=== PATIENT | male | born 1950 | race Caucasian/White ===

== ENCOUNTER 2023-12-11 11:32 | Outpatient (OUT) | payer SELFPAY | END 2023-12-11 11:33 | disposition home or self-care (01) | LOC: PST 11:32 | PROVIDERS: Visit Provider Surgery | DX: Z01.818 Encounter for other preprocedural examination (principal); R22.2 Localized swelling, mass and lump, trunk ==

== ENCOUNTER 2023-12-18 10:21 | Day surgery (SDC) | payer MEDICARE, SELFPAY ==
--- NOTE | 2023-12-18 | OP_ITS ---
OPERATION DATE: 12/18/2023 PREOPERATIVE DIAGNOSIS: Epidermal cyst of upper abdominal wall. POSTOPERATIVE DIAGNOSIS: Epidermal cyst of upper abdominal wall. PROCEDURE: Excisional biopsy 2.5 cm epidermal cyst upper abdominal wall. SURGEON: Sin Shin M.D. ANESTHESIA: Local with 0.5% Marcaine plain. ESTIMATED BLOOD LOSS: Less than 3 mL. 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 Indications, risks, benefits alternatives of proceeding with excisional biopsy under local anesthesia were explained extensively to the patient, including risks of bleeding, infection, scarring, pain, recurrence, need for further surgery. All of his questions were answered. Informed consent was obtained. PROCEDURE: Patient brought to the operating room, placed in the supine position. Area was prepped and draped in the usual sterile fashion. It was anesthetized with 0.5% Marcaine plain. The area was excised in elliptical fashion, down to subcutaneous fat. There was noted to be a large, 2.5 cm epidermal cyst. It was sent off to Pathology. The wound was irrigated. The subcutaneous tissue was re-approximated with interrupted 3-0 Monocryl suture. Skin was then closed with a running 4-0 subcuticular Monocryl suture and skin glue. Sterile pressure dressing was applied. Sponge and needle counts were correct x2 per nursing personnel. Patient tolerated procedure well, was sent to recovery room in good condition, then discharged to home. CC: Patient?s family physician. ANTHONY
--- OUTSIDE RECORDS SUMMARY | 2023-12-18 10:42 | XMS_ITS | CCD ---
Author Organization [facility] Care Team Providers Care Revenue Audit Clerk Name Role Phone YAMILKA MATOS Admitting Unavailable YAMILKA MATOS Attending Unavailable YAMILKA MATOS Primary Care Unavailable SAURABH HARDY Consulting Unavailable YAMILKA MATOS Consulting Unavailable SYD, NAM H Admitting Unavailable SYD, NAM H Attending Unavailable YAMILKA MATOS Primary Care Unavailable HAYLIE BLANCO V Consulting Unavailable SYD, NAM H Consulting Unavailable SYD, NAM H Admitting Unavailable SYD, NAM H Attending Unavailable YAMILKA MATOS Primary Care Unavailable SYD, NAM H Admitting Unavailable SYD, NAM H Attending Unavailable YAMILKA MATOS Primary Care Physician YAMILKA MATOS Referring Unavailable Sin RODRIGUEZ Attending Unavailable Allergies Allergy Classification Reported Allergen(s) Allergy Type Date of Onset Reaction(s) Facility (1 source) No Known Medication Allergies; Translations: [No Known Medication Allergies] Propensity to adverse reactions (disorder) [facility] Repository Medications Completed/Discontinued Medications Medication Drug Class(es) Dates Sig (Normalized) Sig (Original) losartan potassium 50 mg oral tablet (2 sources) Angiotensin 2 Receptor Serena Start: 10-29-2023 SUMAtriptan 100 mg oral tablet (3 sources) Serotonin-1b and Serotonin-1d Receptor Agonist Start: 07-22-2023 End: 10-29-2023 tiZANidine 4 mg oral tablet (2 sources) Central alpha-2 Adrenergic Agonist Start: 10-25-2023 Start: 10-25-2023 take 1 tablet by des th once daily at bedtime Tizanidine Active 1 TAB PO Daily at bedtime October 25, 2023 12:00am FreeTextSig: TAKE 1 TABLET BY MOUTH EVERYDAY AT BEDTIME; Note: Source Status: Start; Refills: 1; Qty: 90 Tablet; Provider: Bonnie Prather ( ) Problems Active Problems Problem Classification Problem Date Documented Date Episodic/Chronic Coronary atherosclerosis and other heart disease (1 source) Coronary arteriosclerosis 11-12-2023 Chronic Diabetes mellitus without complication (1 source) Diabetes mellitus 11-12-2023 Chronic Disorders of lipid metabolism (1 source) Hyperlipidemia 11-12-2023 Chronic Osteoarthritis (1 source) Primary osteoarthritis, right shoulder; Translations: [PRIMARY OSTEOARTHRITIS RT SHOULDER] Onset: 04-03-2019 Chronic Other acquired deformities (4 sources) Scoliosis, unspecified; Translations: [SCOLIOSIS UNSPECIFIED] Onset: 03-03-2019 Chronic Other circulatory disease (1 source) History of cerebrovascular accident 11-12-2023 Episodic Other nutritional; endocrine; and metabolic disorders (1 source) Body mass index 30+ - obesity 12-03-2023 Chronic Other nutritional; endocrine; and metabolic disorders (1 source) Obesity caused by energy imbalance 11-12-2023 Chronic Other skin disorders (3 sources) Abdominal mass; Translations: [Localized swelling, mass and lump, trunk] 10-29-2023 Episodic Other skin disorders (1 source) Localized swelling, mass and lump, trunk; Translations: [Abdominal or pelvic swelling, mass, or lump, unspecified site] 10-29-2023 Episodic Other skin disorders (1 source) Mass of trunk; Translations: [Localized swelling, mass and lump, trunk] Onset: 12-03-2023 Episodic Peripheral and visceral atherosclerosis (1 source) Peripheral vascular disease 11-12-2023 Chronic Spondylosis; intervertebral disc disorders; other back problems (2 sources) Spondylosis without myelopathy or radiculopathy, cervical region; Translations: [Spondylosis without myelopathy or radiculopathy, thoracic region] Onset: 01-02-2019 Chronic Past or Other Problems Problem Classification Problem Date Documented Da te Episodic/Chronic Other non-traumatic joint disorders (1 source) Pain in right shoulder; Translations: [PAIN IN RIGHT SHOULDER] Onset: 01-02-2019 Episodic Spondylosis; intervertebral disc disorders; other back problems (4 sources) Pain in thoracic spine; Translations: [PAIN IN THORACIC SPINE] Onset: 12-30-2018 Episodic Results Test Name Value Interpretation Reference Range Facility MAGR Intraoperative Recordon 02-22-2020 MAGR Intraoperative Record MAGR Intra-Op Record Summary Primary Physician: Finalized Date/Time: 02/22/20 12:39:09 Pt. Name: EMPERATRIZ WILLIAM /Sex: 1950 MALE Med Rec #: [id number] Physician: Michael Amaya DO Financial #: [id number] Pt. Type: D Room/Bed: / Admit/Disch: 01/18/20 07:48:00 - 01/18/20 14:35:00 Institution: Case Times MAGR Entry 1 Patient In Room Time 01/18/20 09:50:00 Out Room Time 01/18/20 10:06:00 Anesthesia Start Time 01/18/20 09:57:00 Stop Time 01/18/20 10:02:00 Surgery Start Time 01/18/20 10:00:00 Stop Time 01/18/20 10:02:00 Last Modified By: Linda Lai RN 02/22/20 12:29:58 Case Attendance MAGR Entry 1 Entry 2 Entry 3 Case Attendee Haylie Esqueda Laura RN Halblaub, Sidsel RN Role Performed Anesthesiologist of Contracts Representative Contracts Representative Record Time In 01/18/20 09:50:00 01/18/20 09:50:00 01/18/20 09:50:00 Time Out 01/18/20 10:06:00 01/18/20 10:06:00 01/18/20 10:06:00 Procedure Interscalene Interscalene Interscalene Block(Right, Shoulder) Block(Right, Shoulder) Block(Right, Shoulder) Last Modified By: Liss Patton RN, Sidsel RN Halblaub, Sidsel RN 01/18/20 10:07:16 01/18/20 10:07:16 01/18/20 10:07:16 Surgical Procedures MAGR Pre-Care Text: A.20 Verifies operative procedure, surgical site, and laterality Im.150 Develops individualized plan of care Entry 1 Procedure Interscalene Block Primary Procedure Yes Primary Surgeon Haylie Esqueda Right, Shoulder Surgeon Comment INTERSCALENE BLOCK Start 01/18/20 10:00:00 PRIOR TO RIGHT SHOULDER ARTHROSCOPY Stop 01/18/20 10:02:00 Anesthesia Type Regional Block Surgical Service Anesthesia Wound Class Clean Technique Details Closure Technique Non-Primary Entire procedure No was performed via laparoscope or robotic assistance Last Modified By: Linda Lai RN 02/22/20 12:31:33 Post-Care Text: O.730 The patient's care is consistent with the individualized perioperative plan of care General Case Data MAGR Pre-Care Text: A.350.1 Classifies surgical wound Entry 1 Case Information OR MAGR Proc Room Case Level None Wound Class Clean Specialty Anesthesia ASA Class 2 Diagnosis Preop Diagnosis INTERSCALENE BLOCK Postop Same As Preop Yes PRIOR TO RIGHT SHOULDER ARTHROSCOPY Postop Diagnosis INTERSCALENE BLOCK PRIOR TO RIGHT SHOULDER ARTHROSCOPY Blunt or No Is the procedure No penetrating injury considered occured prior to Emergent/Urgent? the start of the procedure: Last Modified By: Liss Patton RN 01/18/20 10:04:28 Post-Care Text: O.760 Patient receives consistent and comparable care regardless of the setting Time Out MAGR Entry 1 Time out date/time 01/18/20 09:56:00 All team members Yes have introduced themselves by name and role Surgeon, Yes Surgeon reviews Yes anesthesia, nurse critical or confirm patient, unexpected steps, site, procedure operative duration, anticipated blood loss Anesthesia team Yes Nursing team Yes reviews any reviews sterility patient-specific (including concerns indicator results) and equipment issues/concerns Antibiotic Antibiotic N/A prophylaxis given within the last 60 minutes Is essential N/A imaging displayed? Last Modified By: Liss Patton RN 01/18/20 10:01:07 Patient Positioning MAGR Pre-Care Text: A.280 Identifies baseline musculoskeletal status Im.40 Positions the patient Im.80 Applies safety devices Entry 1 Procedure Interscalene Body Position Supine Block(Right, Shoulder) Left Arm Position Resting at Side Right Arm Position Resting at Side Left Leg Position Extended Right Leg Position Extended Feet Uncrossed? Yes Press Points Checked Yes Outcome Met (O.80) Yes Last Modified By: Liss Patton RN 01/18/20 10:01:20 Post-Care Text: E.290 Evaluates musculoskeletal status O.80 Patient is free from signs and symptoms of injury related to positioning Skin Prep MAGR Pre-Care Text: A.30 Verifies allergies Im.270 Performs skin preparation Im.270.1 Implements protective measures to prevent skin and tissue injury due to chemical sources Entry 1 Skin Prep Syntegrity Prep Agents (Im.270) Chlorhexidine Gluconate Prep By Haylie Esqueda DO and Alcohol Prep Area (Im.270) Shoulder, Neck Prep Area Details Right Skin Prep Agent Dry Yes Without Pooling Hair Removal Syntegrity Hair Removal Methods No hair removal performed Outcome Met (O.100) Yes Last Modified By: Liss Patton RN 01/18/20 10:01:59 Post-Care Text: E.10 Evaluates for signs and symptoms of physical injury to skin and tissue O.100 Patient is free from signs and symptoms of chemical injury Departure from OR MAGR Entry 1 Present on Depart Oxygen Via Stretcher Post-op Destination Mg Skin DFO Condition Dry Description Condition Warm Description Report Given To Rommel MONROY, Neela Huerta Airway Maintenance Patient Status Stable Oxygen in Use? Yes Airway Device Nasal cannula Flow Rate 2 Last Modified By: Liss Patton RN 01/18/20 10:08:21 General Comments: Pt taken directly OR Case Comments Finalized By: Linda Lai RN Document Signatures Signed By: Liss Patton RN 01/18/20 10:08 Linda Lai RN 02/22/20 12:30 Linda Lai RN 02/22/20 12:39 Unfinalized History Date/Time Username Reason for Unfinalizing Freetext Reason for Unfinalizing 02/22/20 12:29 MHRSCOTT Correct Documentation Change the time to equal two minutes for the procedure. 02/22/20 12:31 MHRSCOTT Correct Documentation Second place to change surgery times. [facility] Coding Summaryon 01-21-2020 Coding Summary CODING DATE: 020 [facility] STATUS: Home PAYOR: Medicare ADMIT DX: REASON FOR VISIT DX: Z20.828 Contact with and (suspected) exposure to other viral communicable diseases FINAL DX: PRINCIPAL: Z20.828 Contact with and (suspected) exposure to other viral communicable diseases SECONDARY: PYMT PROC APC STAT DESCRIPTION DOCTOR NAME DATE NOTE: The code number assigned matches the documented diagnosis and / or procedure in the patient's chart. However, the narrative phrase printed from the coding software may appear abbreviated, or result in slightly different terminology. Coded By: Anya Alcala Date Saved: 01/21/2020 12:55 pm [facility] Consent Formson 01-21-2020 Consent Forms [id number]#1.00O [facility] Coding Summaryon 01-19-2020 Coding Summary CODING DATE: 020 [facility] STATUS: Home PAYOR: Medicare APC DESCRIPTION 5114 Level 4 Musculoskeletal Procedures ADMIT DX: REASON FOR VISIT DX: M19.011 Primary osteoarthritis, right shoulder FINAL DX: PRINCIPAL: M19.011 Primary osteoarthritis, right shoulder SECONDARY: M75.41 Impingement syndrome of right shoulder S43.431A Superior glenoid labrum lesion of right shoulder, initial encounter PYMT PROC APC STAT DESCRIPTION DOCTOR NAME DATE 02448 5114 J1 Arthroscopy, shoulderMonique James And 01/18/2020 surgical; repair of SLAP lesion RT Right side (used to identify procedures performed on the right side of the body) 51458 Arthroscopy, shoulderMonique James And 01/18/2020 surgical; distal claviculectomy including distal articular surface (Laxmi procedure) RT Right side (used to identify procedures performed on the right side of the body) NOTE: The code number assigned matches the documented diagnosis and / or procedure in the patient's chart. However, the narrative phrase printed from the coding software may appear abbreviated, or result in slightly different terminology. Revised Coded By: Megan Peterson Revised Date Saved: 01/19/2020 10:36 am [facility] Consent Formson 01-19-2020 Consent Forms [id number]#1.00O [facility] Discharge Instructionson Discharge Instructions [id number]#1.00O [facility] History and Physicalon 01-18 History and Physical [id number]#1.00O [facility] Medication Managementon 12-31 Medication Management [id number]#1.00O [facility] Outside Recordson 01-19-2020 Outside Records [id number]#1.00O [facility] Provider Orderson 01-19-2020 Provider Orders [id number]#1.00O [facility] Telemetry Stripson 0 Telemetry Strips [id number]#1.00O [facility] Anesthesia Noteon 01-18-2020 Anesthesia Note Patient: ARIK WILLIAM Age: 69 years Sex: MALE : 1950 Associated Diagnoses: None Author: Haylie Esqueda DO Preoperative Information Anesthesia history: Patient history: No difficult intubation, No malignant hyperthermia. Family history: No malignant hyperthermia, No prior anesthesia problems. Review of Systems Constitutional: Negative. Eye Ear/Nose/Mouth/Throat Respiratory: No shortness of breath, No cough. Cardiovascular: No chest pain. Gastrointestinal: No heartburn. Endocrine: Negative. Musculoskeletal: Joint pain. Neurologic: Alert and oriented X4. Health Status Allergies: Allergic Reactions (All) No Known Medication Allergies Current medications: Home Medications (5) Active acetaminophen 500 mg oral tablet 1,000 mg = 2 tab(s), PRN, PO, BID cloNIDine 0.1 mg oral tablet 0.1 mg = 1 tab(s), PO, BID Multivitamin, generic 1 tab(s), PO, Daily SUMAtriptan 100 mg oral tablet 100 mg = 1 tab(s), PRN, PO, Once tiZANidine 4 mg oral capsule 4 mg = 1 cap(s), PRN, PO, HS Problem list (past medical history): No problem items selected or recorded. Histories Family History: No family history items have been selected or recorded. Procedure history: Tonsillectomy and adenoidectomy ([id number]). Social History Electronic Cigarette/Vaping Assessment Electronic Cigarette Use: Never. Alcohol Assessment Beer Comment: occational beer Tobacco Assessment Never (less than 100 in lifetime) Tobacco Use:. Substance Abuse Assessment Marijuana Comment: pt states a couple of times a month . Social & Psychosocial Habits Alcohol 01/08/2020 Type: Beer Comment: occational beer - 01/08/2020 09:14 - Liss Patton RN Substance Abuse 01/08/2020 Type: Marijuana Comment: pt states a couple of times a month - 01/08/2020 09:15 - Liss Patton RN Tobacco 01/08/2020 Smoking tobacco use: Never (less than 100 in l Electronic Cigarette/Vaping 01/08/2020 Electronic Cigarette Use: Never . Physical Examination VS/Measurements Vital Signs (last 24 hrs) Last Charted Heart Rate Peripheral L 54bpm (JAN 17 10:00) Resp Rate 16 br/min (JAN 17:) SBP H 154mmHg (JAN 17:) DBP 88 mmHg (JAN 17:) SpO2 100 % (JAN 17:) General: Alert and oriented, No acute distress. Airway: Mallampati classification: II (soft palate, fauces, uvula visible). Temporomandibular joint mobility: Good. Mouth: Dentures ( Upper and lower dentures ). Neck: Non-tender, Full range of motion. Respiratory: Lungs are clear to auscultation. Cardiovascular: Normal rate, Regular rhythm. Neurologic: Alert, Oriented. Review / Management Laboratory Results Plan [place] [employer]esthesiologists#(ASA) physical status classification: Class II. Anesthetic Preoperative Plan Anesthesia: General. , Regional Interscalene Block. Anesthetic plan, risks, benefits, and alternatives discussed with the patient and/or family. Risks discussed: nausea, vomiting, sore throat, serious complications. Patient verbalized understanding. Family/Guardian present. Informed consent was given. Consent was signed by the patient. [Electronically Signed on: 01/18/2020 10:35 EDT] Haylie Esqueda DO [Verified on: 01/18/2020 10:35 EDT] Haylie Esqueda DO Normal [facility] Inpatient Patient Summaryon 01-18-2020 Inpatient Patient Summary [address] [address] Patient Discharge Instructions Name: EMPERATRIZ WILLIAM : 1950 Patient Address: [address] [place], [place] [id number] Primary Care Provider: Name: Yamilka Matos MD After you are discharged if you find you have any questions, please, call [phone] ext [phone] to speak to a nurse. Discharge Diagnosis: Arthritis of right acromioclavicular joint; Impingement syndrome of right shoulder Prescription Information: If you have been given a prescription for narcotics, seek immediate medical attention if you have any difficulty breathing or any sudden status changes such as confusion and sleepiness. If you or anyone you know is experiencing suicidal thoughts, mental health, alcohol and/or drug addiction problems; contact the [facility] 22/10 Crisis Hotline -Text 4HRUK to 144933. If you received any narcotics, sedation, or any other medication that causes drowsiness for the next 24 hours, unless otherwise directed: ? Do not drive a car. ? Do not operate machinery such as power tools, lawn mowers, drills, sewing machines, or stoves ? Avoid alcoholic beverages and drugs for allergies, nerves, or sleep ? Do not make important personal or business decisions or sign any legal documents [facility] would like to thank you for allowing us to assist you with your healthcare needs. The following includes patient education materials and information regarding your injury/illness. EMPERATRIZ WILLIAM has been given the following list of follow-up instructions, prescriptions, and patient education materials: Follow-up Instructions With: Address: When: CHANTAL KRAUSE [address] [place] [address], [address] [place] [address] Business (1) 01/27/2020 2:45 PM With: Address: When: Yamikla Matos [address] [place] [address], [facility] [place] [address] Business (1) Medications During the course of your visit, your medication list was updated with the most current information. The details of those changes are reflected below: Medications to Continue That Have Not Changed Other Medications acetaminophen (acetaminophen 500 mg oral tablet) 2 tab(s) Oral 2 times a day as needed for pain. acetaminophen-oxycodone (Percocet 5 mg-325 mg oral tablet) 1 tab(s) Oral Every 6 hours as needed as needed for pain. cloNIDine (cloNIDine 0.1 mg oral tablet) 1 tab(s) Oral 2 times a day. multivitamin (Multivitamin, generic) 1 tab(s) Oral every day. SUMAtriptan (SUMAtriptan 100 mg oral tablet) 1 tab(s) Oral once as needed for migraine headache. may repeat dose after 2 hours up to a maximum of 200 mg in 24 hours. tiZANidine (tiZANidine 4 mg oral capsule) 1 cap(s) Oral At bedtime as needed muscle pain. It is important to always keep an active list of medications available so that you can share with other providers and manage your medications appropriately. As an additional courtesy, we are also providing you with your final active medications list that you can keep with you. acetaminophen (acetaminophen 500 mg oral tablet) 2 tab(s) Oral 2 times a day as needed for pain. acetaminophen-oxycodone (Percocet 5 mg-325 mg oral tablet) 1 tab(s) Oral Every 6 hours as needed as needed for pain., Home script Dr. Goldsmiht 01-18-2020 cloNIDine (cloNIDine 0.1 mg oral tablet) 1 tab(s) Oral 2 times a day. multivitamin (Multivitamin, generic) 1 tab(s) Oral every day. SUMAtriptan (SUMAtriptan 100 mg oral tablet) 1 tab(s) Oral once as needed for migraine headache. may repeat dose after 2 hours up to a maximum of 200 mg in 24 hours. tiZANidine (tiZANidine 4 mg oral capsule) 1 cap(s) Oral At bedtime as needed muscle pain. Take only the medications listed above. Contact your doctor prior to taking any medications not on this list. Diet & Activity Patient Activity Level: Patient Diet: Regular Patient Activity Restrictions: Comment: Patient education materials, if any, will display below DR. WINTERS POST OPERATIVE SHOULDER INSTRUCTIONS SURGEONS WRITTEN INSTRUTCTIONS: -If you have been given a cryo cuff after surgery you should use it as much as possible for the first 24-48 hours. After that it is optional. TIP: Many patients prefer to use it a little longer because it helps reduce pain -You should wiggle your fingers frequently -Change your dressings in 1 day. If steri-strips have been applied DO NOT remove them. When the wound is clean and dry you may leave it open to air but again DO NOT remove any steri-strips that have been applied -You may shower in 1 day but do not let the water stream directly strike the wound -Do pendulum exercises for at least 10 minutes twice a day -If you have any problems or concerns, please call the office at [phone] -Follow up as scheduled Viruses or Bacteria What?s got you sick? Antibiotics only treat bacterial infections. Viral illnesses cannot be treated with antibiotics. When an antibiotic is not prescribed, ask your healthcare professional for tips on how to relieve symptoms and feel better. Usual Cause Illness Viruses Bacteria Antibiotic Needed Cold/Runny Nose NO Bronchitis/Chest Cold (in otherwise healthy children and adults) NO Whooping Cough Yes Flu NO Strep Throat Yes Sore Throat (except strep) NO Fluid in the middle ear (otitis media with effusion) NO Urinary Tract Infection Yes Antibiotics Aren?t Always the Answer www.cdc.gov/getsmart GET SMART Know When Antibiotics Work U.S. Department of Health and Human Services Centers for Disease Control and Prevention November 2013 [facility] MAGR Intraoperative Recordon 01-18-2020 MAGR Intraoperative Record MAGR Intra-Op Record Summary Primary Physician: Michael Amaya DO Finalized Date/Time: 01/18/20 12:00:00 Pt. Name: EMPERATRIZ WILLIAM /Sex: 1950 MALE Med Rec #: [id number] Physician: Michael Amaya DO Financial #: [id number] Pt. Type: D Room/Bed: / Admit/Disch: 01/18/20 07:48:00 - Institution: Case Times MAGR Entry 1 Patient In Room Time 01/18/20 10:07:00 Out Room Time 01/18/20 11:55:00 Anesthesia Start Time 01/18/20 10:07:00 Stop Time 01/18/20 11:57:00 Surgery Start Time 01/18/20 10:42:00 Stop Time 01/18/20 11:41:00 Last Modified By: Rommel MONROY, Neela Huerta 01/18/20 11:54:51 Case Attendance MAGR Entry 1 Entry 2 Entry 3 Case Attendee Michael Amaya David DO Ricci RN, Neela Cannon DO Role Performed Surgeon - Primary Anesthesiologist of Contracts Representative Record Time In 01/18/20 10:07:00 01/18/20 10:07:00 01/18/20 10:07:00 Time Out 01/18/20 11:55:00 01/18/20 11:55:00 01/18/20 11:55:00 Procedure Arthroscopy Arthroscopy Arthroscopy Shoulder(Right, Shoulder(Right, Shoulder(Right, Shoulder) Shoulder) Shoulder) Last Modified By: Rommel RN, Neela Carney RN, Neela Carney RN, Neela Huerta 01/18/20 11:59:37 01/18/20 11:59:37 01/18/20 11:59:37 Entry 4 Entry 5 Entry 6 Case Attendee Tanya Davison CST, Alida Bhatt RN, Carlene Strickland Role Performed Scrub Personnel Scrub Personnel Contracts Representative Time In 01/18/20 10:07:00 01/18/20 10:07:00 01/18/20 10:07:00 Time Out 01/18/20 11:55:00 01/18/20 11:55:00 01/18/20 11:55:00 Procedure Arthroscopy Arthroscopy Arthroscopy Shoulder(Right, Shoulder(Right, Shoulder(Right, Shoulder) Shoulder) Shoulder) Last Modified By: Rommel MONROY, Neela Carney RN, Neela Carney RN, Neela Huerta 01/18/20 11:59:37 01/18/20 11:59:37 01/18/20 11:59:37 Surgical Procedures MAGR Pre-Care Text: A.20 Verifies operative procedure, surgical site, and laterality Im.150 Develops individualized plan of care Entry 1 Procedure Arthroscopy Shoulder Primary Procedure Yes Primary Surgeon Michael Amaya Right, Shoulder Davis JOHNSTON Surgeon Comment RIGHT SHOULDER Start 01/18/20 10:42:00 ARTHROSCOPY, LABRAL REPAIR, DISTAL CLAVICLE RESECTION Stop 01/18/20 11:41:00 Anesthesia Type General Surgical Service Orthopedics Wound Class Clean Technique Details Closure Technique Primary Entire procedure Yes was performed via laparoscope or robotic assistance Last Modified By: Neela Carney RN 01/18/20 11:59:40 Post-Care Text: O.730 The patient's care is consistent with the individualized perioperative plan of care General Case Data MAGR Pre-Care Text: A.350.1 Classifies surgical wound Entry 1 Case Information OR MAGR OR 05 Case Level Level 4 Wound Class Clean Specialty Orthopedics ASA Class 2 Diagnosis Preop Diagnosis INTERNAL DERANGEMENT Postop Same As Preop Yes RIGHT SHOULDER Postop Diagnosis INTERNAL DERANGEMENT RIGHT SHOULDER Blunt or No Is the procedure No penetrating injury considered occured prior to Emergent/Urgent? the start of the procedure: Last Modified By: Neela Carney RN 01/18/20 10:59:52 Post-Care Text: O.760 Patient receives consistent and comparable care regardless of the setting Time Out MAGR Entry 1 Time out date/time 01/18/20 10:41:00 All team members Yes have introduced themselves by name and role Surgeon, Yes Surgeon reviews Yes anesthesia, nurse critical or confirm patient, unexpected steps, site, procedure operative duration, anticipated blood loss Anesthesia team Yes Nursing team Yes reviews any reviews sterility patient-specific (including concerns indicator results) and equipment issues/concerns Antibiotic Antibiotic Yes Administration Time 10:05 prophylaxis given within the last 60 minutes Is essential Yes imaging displayed? Last Modified By: Neela Carney RN 01/18/20 11:00:19 Patient Positioning MAGR Pre-Care Text: A.280 Identifies baseline musculoskeletal status Im.40 Positions the patient Im.80 Applies safety devices Entry 1 Procedure Arthroscopy Body Position Lateral Shoulder(Right, Shoulder) Left Arm Position Extended on padded arm Right Arm Position Other/See comments board Left Leg Position Extended Right Leg Position Extended Feet Uncrossed? Yes Press Points Checked Yes Additional RIGHT ARM SECURED ON Positioning Device Arm Boards, Arm Strap, Information FIELD IN STAR SLEEVE, Pillow, Safety Strap, LEFT AXILLARY ROLL IN Axillary Roll, Peg Board PLACE. GELPAD UNDER FULL BODY, SECURED ON PEGBOARD, PILLOW BETWEEN LEGS. Outcome Met (O.80) Yes Last Modified By: Neela Carney RN 01/18/20 11:01:14 Post-Care Text: E.290 Evaluates musculoskeletal status O.80 Patient is free from signs and symptoms of injury related to positioning Skin Prep MAGR Pre-Care Text: A.30 Verifies allergies Im.270 Performs skin preparation Im.270.1 Implements protective measures to prevent skin and tissue injury due to chemical sources Entry 1 Skin Prep Syntegrity Prep Agents (Im.270) Chlorhexidine Gluconate Prep By Neela Carney RN and Alcohol Prep Area (Im.270) Shoulder, Arm, Hand Prep Area Details Right Skin Prep Agent Dry Yes Without Pooling Hair Removal Syntegrity Hair Removal Methods No hair removal performed Outcome Met (O.100) Yes Last Modified By: Neela Carney RN 01/18/20 11:03:16 Post-Care Text: E.10 Evaluates for signs and symptoms of physical injury to skin and tissue O.100 Patient is free from signs and symptoms of chemical injury Counts Verification MAGR Pre-Care Text: A.20 Verifies operative procedure, surgical site, and laterality A.20.2 Assesses the risk for unintended retained foreign body Im.20 Performs required counts Entry 1 Procedure Arthroscopy Shoulder(Right, Shoulder) Counts Verification Initial Counts Items included in Sponges, Sharps Initial Counts Manual the Initial Count Method Initial Counts Tanya Davison, Initial Count Time 01/18/20 10:00:00 Performed By Carlene Bhatt RN Counts Verification Final Counts Items Included in Sponges, Sharps Final Count Method Manual Final Count Final Count Status Correct Final Counts Neela Carney RN, Performed By Tanya Davison Final Count Time 01/18/20 11:31:00 Surgeon notified of Yes final counts status Outcome Met (O.20) Yes Last Modified By: Neela Carney RN 01/18/20 11:31:14 Post-Care Text: E.50 Evaluates results of the surgical count O.20 Patient is free from unintended retained foreign objects Patient Care Devices MAGR Pre-Care Text: A.200 Assesses risk for normothermia regulation A.40 Verifies presence of prosthetics or corrective devices Im.280 Implements thermoregulation measures Im.60 Uses supplies and equipment within safe parameters Entry 1 Entry 2 Equipment Type FORCED AIR WARMING BILATERAL PNEUMATIC COMPRESSION DEVICE Serial ?# [id number] Equipment Setting 43 DEGREES DEFAULT Last Modified By: Neela Carney RN, RN, Jessica L 01/18/20 11:04:33 01/18/20 11:04:33 Post-Care Text: E.10 Evaluates signs and symptoms of physical injury to skin and tissue O.700 Patient is free from signs and symptoms of injury caused by extraneous objects Medication Administration MAGR Pre-Care Text: A.210 Identifies physiological status Im.220 Administers prescribed medications Entry 1 Time Administered 01/18/20 11:04:00 Medication EPI 1:1000 X 3 AMPS IN 3000ML NS Route of Admin IRRIG Volume 5 bags By Michael Amaya Outcome Met (O.130) Yes Davis JOHNSTON Last Modified By: Neela Carney RN 01/18/20 11:30:57 Post-Care Text: E.20 Evaluates response to medications O.130 Patient receives appropriately administered medication(s) Implant Log MAGR Pre-Care Text: A.20 Verifies operative procedure, surgical site, and laterality Im.350 Records implants inserted during the operative or invasive procedure Entry 1 Procedure Arthroscopy Implant Action Implant Shoulder(Right, Shoulder) Description ANCHOR PUSHLOCK 2.9MM Implant Information Implant/Explant 01/18/20 11:05:00 Implanted/Explanted Michael Amaya Date/Time By: Davis JOHNSTON Size 2.9 X 12.5MM 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 Site Details Right Dressing Item Details Dressing Item 4x4's, ABD, Other (See Tape (Im.290) Foam (Im.290) comment) Outcome Met Yes Last Modified By: Neela Carney RN 01/18/20 11:07:04 Post-Care Text: E.200 Evaluates progress of wound healing O.200 Patient's wound perfusion is consistent with or improved from baseline levels General Comments: ADAPTIC Departure from OR MAGR Entry 1 Present on Depart Oxygen Via Stretcher Post-op Destination PACU Skin DFO Condition Dry Description Condition Intact Description Report Given To Annie Dean RN Airway Maintenance Patient Status Stable Oxygen in Use? Yes Airway Device Simple mask Flow Rate 6 L Last Modified By: Neela Carney RN 01/18/20 11:07:22 Case Comments Finalized By: Neela Carney RN Document Signatures Signed By: Neela Carney RN 01/18/20 12:00 [facility] MAGR Intraoperative Record MAGR Intra-Op Record Summary Primary Physician: Finalized Date/Time: 01/18/20 10:08:30 Pt. Name: EMPERATRIZ WILLIAM /Sex: 1950 MALE Med Rec #: [id number] Physician: Michael Amaya DO Financial #: [id number] Pt. Type: D Room/Bed: / Admit/Disch: 01/18/20 07:48:00 - Institution: Case Times MAGR Entry 1 Patient In Room Time 01/18/20 09:50:00 Out Room Time 01/18/20 10:06:00 Anesthesia Start Time 01/18/20 09:57:00 Stop Time 01/18/20 10:02:00 Surgery Start Time 01/18/20 10:00:00 Stop Time 01/18/20 10:00:00 Last Modified By: Liss Patton RN 01/18/20 10:07:12 Case Attendance MAGR Entry 1 Entry 2 Entry 3 Case Attendee Haylie Esqueda Laura RN Halblaub, Sidsel RN Role Performed Anesthesiologist of Contracts Representative Contracts Representative Record Time In 01/18/20 09:50:00 01/18/20 09:50:00 01/18/20 09:50:00 Time Out 01/18/20 10:06:00 01/18/20 10:06:00 01/18/20 10:06:00 Procedure Interscalene Interscalene Interscalene Block(Right, Shoulder) Block(Right, Shoulder) Block(Right, Shoulder) Last Modified By: Liss Patton RN, Sidsel RN Halblaub, Sidsel RN 10/19/20 10:07:16 01/18/20 10:07:16 01/18/20 10:07:16 Surgical Procedures MAGR Pre-Care Text: A.20 Verifies operative procedure, surgical site, and laterality Im.150 Develops individualized plan of care Entry 1 Procedure Interscalene Block Primary Procedure Yes Primary Surgeon Haylie Esqueda DO Modifiers Right, Shoulder Surgeon Comment INTERSCALENE BLOCK Start 01/18/20 10:00:00 PRIOR TO RIGHT SHOULDER ARTHROSCOPY Stop 01/18/20 10:00:00 Anesthesia Type Regional Block Surgical Service Anesthesia Wound Class Clean Technique Details Closure Technique Non-Primary Entire procedure No was performed via laparoscope or robotic assistance Last Modified By: Liss Patton RN 01/18/20 10:04:13 Post-Care Text: O.730 The patient's care is consistent with the individualized perioperative plan of care General Case Data MAGR Pre-Care Text: A.350.1 Classifies surgical wound Entry 1 Case Information OR MAGR Proc Room Case Level None Wound Class Clean Specialty Anesthesia ASA Class 2 Diagnosis Preop Diagnosis INTERSCALENE BLOCK Postop Same As Preop Yes PRIOR TO RIGHT SHOULDER ARTHROSCOPY Postop Diagnosis INTERSCALENE BLOCK PRIOR TO RIGHT SHOULDER ARTHROSCOPY Blunt or No Is the procedure No penetrating injury considered occured prior to Emergent/Urgent? the start of the procedure: Last Modified By: Liss Patton RN 01/18/20 10:04:28 Post-Care Text: O.760 Patient receives consistent and comparable care regardless of the setting Time Out MAGR Entry 1 Time out date/time 01/18/20 09:56:00 All team members Yes have introduced themselves by name and role Surgeon, Yes Surgeon reviews Yes anesthesia, nurse critical or confirm patient, unexpected steps, site, procedure operative duration, anticipated blood loss Anesthesia team Yes Nursing team Yes reviews any reviews sterility patient-specific (including concerns indicator results) and equipment issues/concerns Antibiotic Antibiotic N/A prophylaxis given within the last 60 minutes Is essential N/A imaging displayed? Last Modified By: Liss Patton RN 01/18/20 10:01:07 Patient Positioning MAGR Pre-Care Text: A.280 Identifies baseline musculoskeletal status Im.40 Positions the patient Im.80 Applies safety devices Entry 1 Procedure Interscalene Body Position Supine Block(Right, Shoulder) Left Arm Position Resting at Side Right Arm Position Resting at Side Left Leg Position Extended Right Leg Position Extended Feet Uncrossed? Yes Press Points Checked Yes Outcome Met (O.80) Yes Last Modified By: Liss Patton RN 01/18/20 10:01:20 Post-Care Text: E.290 Evaluates musculoskeletal status O.80 Patient is free from signs and symptoms of injury related to positioning Skin Prep MAGR Pre-Care Text: A.30 Verifies allergies Im.270 Performs skin preparation Im.270.1 Implements protective measures to prevent skin and tissue injury due to chemical sources Entry 1 Skin Prep Syntegrity Prep Agents (Im.270) Chlorhexidine Gluconate Prep By Haylie Esqueda DO and Alcohol Prep Area (Im.270) Shoulder, Neck Prep Area Details Right Skin Prep Agent Dry Yes Without Pooling Hair Removal Syntegrity Hair Removal Methods No hair removal performed Outcome Met (O.100) Yes Last Modified By: Liss Patton RN 01/18/20 10:01:59 Post-Care Text: E.10 Evaluates for signs and symptoms of physical injury to skin and tissue O.100 Patient is free from signs and symptoms of chemical injury Departure from OR MAGR Entry 1 Present on Depart Oxygen Via Stretcher Post-op Destination Mg Skin DFO Condition Dry Description Condition Warm Description Report Given To Rommel MONROY, Neela Huerta Airway Maintenance Patient Status Stable Oxygen in Use? Yes Airway Device Nasal cannula Flow Rate 2 Last Modified By: Liss Patton RN 01/18/20 10:08:21 General Comments: Pt taken directly OR Case Comments Finalized By: Liss Patton RN Document Signatures Signed By: Liss Patton RN 01/18/20 10:08 [facility] PACU Recordon 0 [facility] PACU Record [facility] Record Summary Primary Physician: Michael Amaya DO Finalized Date/Time: 01/18/20 12:57:04 Pt. Name: STEWART EMPERATRIZ DEZ DenisB./Sex: 1950 MALE Med Rec #: [id number] Physician: Michael Amaya DO Financial #: [id number] Pt. Type: D Room/Bed: / Admit/Disch: 01/18/20 07:48:00 - Institution: PACU Case Times MAGR Entry 1 In PACU I 01/18/20 11:57:00 Discharge from PACU 01/18/20 12:07:00 I Last Modified By: Annie Dean RN 01/18/20 12:57:02 General Comments: Pt discharged from PACU using discharge criteria per DFr. Esqueda. Finalized By: Annie Dean RN Document Signatures Signed By: Annie Dean RN 01/18/20 12:57 [facility] MAGR Postoperative Recordon 01-18-2020 MAGR Postoperative Record MAGR Phase II Record Summary Primary Physician: Michael Amaya DO Finalized Date/Time: 01/18/20 15:06:00 Pt. Name: EMPERATRIZ WILLIAM DEZ /Sex: 1950 MALE Med Rec #: [id number] Physician: Michael Amaya DO Financial #: [id number] Pt. Type: D Room/Bed: / Admit/Disch: 01/18/20 07:48:00 - Institution: Phase II Case Times MAGR Pre-Care Text: Patient is free from s/s of injury. Patient remains free from compromised physical state related to surgery or anesthesia. Patient comfort maintained. Patient/family verbalize understanding of discharge instructions. Entry 1 In PACU II 01/18/20 13:06:00 Discharge from PACU 01/18/20 14:35:00 II Last Modified By: Kasie Strong RN 01/18/20 15:05:56 Post-Care Text: The patient remains free from s/s of injury. Patient's vital signs stable, circulation maintained, return to preop mental and physical status, opsite/dressing intact, minimal or absent nausea and vomiting, tolerates po intake. Patient verbalizes adequate pain control. Patient/family express understanding of discharge instructions. Finalized By: Kasie Strong RN Document Signatures Signed By: Kasie Strong RN 01/18/20 15:06 [facility] MAGR Preoperative Recordon 1 MAGR Preoperative Record MAGR Pre-Op Record Summary Primary Physician: Michael Amaya DO Finalized Date/Time: 01/18/20 10:09:10 Pt. Name: EMPERATRIZ WILLIAM /Sex: 1950 MALE Med Rec #: [id number] Physician: Michael Amaya DO Financial #: [id number] Pt. Type: D Room/Bed: / Admit/Disch: 01/18/20 07:48:00 - Institution: Pre-Op Case Times MAGR Pre-Care Text: Patient will be optimally prepared for surgery. Patient is free from s/s of injury. Provide information to patient/family related to plan of care. Verify patient allergies. Confirm identity and verify consent before the operative or invasive procedure. Entry 1 Patient Arrival Time 01/18/20 07:59:00 Preop Departure 01/18/20 10:06:00 Last Modified By: Liss Patton RN 01/18/20 10:09:06 Post-Care Text: Patient is prepared mentally and physically and is ready for surgery. The patient remains free from s/s of injury. Patient/family express understanding of plan of care and participate in decisions affecting his or her perioperrative plan of care. Allergies documented appropriately. Patient identifiers and consent correct. General Comments: Pt arrives to psw ambualtory. PT has rigth shoulder pain #5. Pt denies cp, sob,c ough or flu like symptoms. Pt denies pacemaker/defibillator or sleep apnea. Finalized By: Liss Patton RN Document Signatures Signed By: Liss Patton RN 01/18/20 10:09 [facility] Operative Report - Surgeon/P francine 01-18-2020 Operative Report - Surgeon/Physician Preoperative diagnosis: Arthritis acromioclavicular joint right shoulder Postoperative diagnosis: Arthritis acromioclavicular joint right shoulder with subacromial impingement, tear labrum/SLAP lesion Procedure: Arthroscopic distal clavicle resection with subacromial decompression Scopic repair of SLAP lesion Surgeon: Jessica Amaya D.O. Anesthesia: General Indications for surgery: Progressive symptoms of impingement and arthritis with failure of conservative treatment Estimated blood loss: Scant Complications: There were no complications Findings: There was marked arthritic changes of the acromioclavicular joint with large inferior osteophytes and a type II acromium. There is impingement on the underlying soft tissues. There was a SLAP lesion. Procedure summary: The patient was brought to the operative suite he was given general anesthesia and the shoulder was examined. There is no obvious instability he was placed in the lateral decubitus position the right shoulder was sterilely prepped and draped in usual fashion and a timeout was taken. A posterior portal was established upon entering the glenohumeral joint immediately noted tear in the labrum with detachment anteriorly and posteriorly. The rotator cuff had a normal appearance The articular cartilage was intact with exception of the small area of erosive changes the great Nicanor to the biceps. I placed a grasper on the biceps and pulled the slack out of the tendon and noted the tendon to be completely intact without fraying. I used a rasp to scuff of the neck of the glenoid and then I inserted 2 fiber link suture anchors 1 just inferior to the biceps and one just superior and posterior to the biceps. I drilled 2 holes with a 2.9 drill bit and inserted two, 2.9 bio push locks. This repaired the labrum SLAP lesion. I then repositioned the scope into the subacromial space I examined the rotator cuff from above the rotator cuff at its insertion site was intact. But underneath the acromioclavicular joint there was some fraying occurring superficially. There was no capsule remaining inferiorly on the acromioclavicular joint there was a type II acromium and there was inferior osteophytes on the medial edge of the acromium and distal edge of the clavicle. Utilizing 4 mm barrel bur I took down the bone spurs at the acromioclavicular joint I reshape the undersurface of the acromium to a type I acromion. And I resected the distal clavicle leaving about a centimeter space between the acromium and the clavicle. The joint was irrigated and evacuated and the portals were closed with nylon suture [Electronically Signed on: 01/18/2020 11:59 EDT] Michael Amaya DO [Verified on: 01/18/2020 11:59 EDT] Michael Amaya DO Normal [facility] Patient Handouton 01-18-[address] WINTERS POST OPERATIVE SHOULDER INSTRUCTIONS SURGEONS WRITTEN INSTRUTCTIONS: -If you have been given a cryo cuff after surgery you should use it as much as possible for the first 24-48 hours. After that it is optional. TIP: Many patients prefer to use it a little longer because it helps reduce pain -You should wiggle your fingers frequently -Change your dressings in 1 day. If steri-strips have been applied DO NOT remove them. When the wound is clean and dry you may leave it open to air but again DO NOT remove any steri-strips that have been applied -You may shower in 1 day but do not let the water stream directly strike the wound -Do pendulum exercises for at least 10 minutes twice a day -If you have any problems or concerns, please call the office at [phone] -Follow up as scheduled Normal [facility] 2019 Novel Coronavirus (CoVI D-19), CHRIS LCon 01-15-2020 SARS-CoV-2, CHRIS (COVID-19) LC Not Detected Not Detected [facility] Comment on above: Order Comment: [id number] Result Comment: This nucleic acid amplification test was developed and its performance characteristics determined by [employer]. Nucleic acid amplification tests include PCR and TMA. This test has not been FDA cleared or approved. This test has been authorized by FDA under an Emergency Use Authorization (EUA). This test is only authorized for the duration of time the declaration that circumstances exist justifying the authorization of the emergency use of in vitro diagnostic tests for detection of SARS-CoV-2 virus and/or diagnosis of COVID-19 infection under section 564(b)(1) of the Act, 21 U.S.C. 360bbb-3(b) (1), unless the authorization is terminated or revoked sooner. When diagnostic testing is negative, the possibility of a false negative result should be considered in the context of a patient's recent exposures and the presence of clinical signs and symptoms consistent with COVID-19. An individual without symptoms of COVID-19 and who is not shedding SARS-CoV-2 virus would expect to have a negative (not detected) result in this assay. Performed At: [facility] [address] [place] [id number] Donny Duran MD Ph:[phone] Performed By: #### 6 [id number] ####[facility] (DEFAULT)[address] [place] [id number] Progress Note - Nurseon 12-30 Progress Note - Nurse chart reviewed per Dr Whyte, no further orders [Electronically Signed on: 01/15/2020 15:39 EDT] Felicitas Manley RN [Verified on: 01/15/2020 15:39 EDT] Felicitas Manley RN [facility] Progress Note - Nurse Pre-op call for 01-18-2020 surgery don and informed patient of arrival time of 0745, NPO status after midnight except for meds that he was instructed to take and no valuables- patient with understanding. [Electronically Signed on: 01/15/2020 09:49 EDT] Annie Dean RN [Verified on: 01/15/2020 09:49 EDT] Annie Dean RN [facility] Progress Note - Nurseon 12-30 Progress Note - Nurse Nasal swab performed without complication. Patient tolerated well. Education given. Patient verbalized understanding. [Electronically Signed on: 01/14/2020 14:48 EDT] Ana Cristina Taylor RN [Verified on: 01/14/2020 14:48 EDT] Ana Cristina Taylor RN [facility] Coding Summaryon 01-12-2020 Coding Summary CODING DATE: 020 [facility] STATUS: Home PAYOR: Medicare APC DESCRIPTION 5733 Level 3 Minor Procedures ADMIT DX: REASON FOR VISIT DX: Z01.818 Encounter for other preprocedural examination FINAL DX: PRINCIPAL: Z01.818 Encounter for other preprocedural examination SECONDARY: PYMT PROC APC STAT DESCRIPTION DOCTOR NAME DATE NOTE: The code number assigned matches the documented diagnosis and / or procedure in the patient's chart. However, the narrative phrase printed from the coding software may appear abbreviated, or result in slightly different terminology. Coded By: Samanta Tubbs Date Saved: 01/12/2020 08:14 am [facility] Progress Note - Nurseon 12-30 INR Coag (Bld) [Relative time] PAT chart review for surgery on 01-18-2020 done per anesthesiologist, Dr. Whyte on 01-11-2020- Dr Whyte requested patient have medical clearance and to be seen by his PCP for blood pressure control. Dr. Amaya's office called in morning on 01-12-2020 and Kavita notified of request by anesthesiology. [Electronically Signed on: 01/12/2020 13:15 EDT] Annie Dean RN [Verified on: 01/12/2020 13:15 EDT] DianneAnnie oliver RN [facility] Advance Directive Documentso n 01-11-2020 Advance Directive Documents [id number] TGTIFF [facility] .Auto Diff 1on 01-08-2020 Auto Cotton % 11 % Normal 1-12 [facility] Comment on above: Performed By: #### 7 [id number], [id number] ####[facility] (DEFAULT)[address] [place] [address] Baso Abs# 0.0 x10 Normal 0.0-0.2 [facility] Comment on above: Performed By: #### 7 [id number], [id number] ####[facility] (DEFAULT)[address] [place] [address] Basophils/100 WBC (Bld) 0.3 % Normal 0.2-2.0 [facility] Comment on above: Performed By: #### 7 [id number], [id number] ####[facility] (DEFAULT)[address] [place] [address] Eos Abs# 0.1 x10 Normal 0.0-0.4 [facility] Comment on above: Performed By: #### 7 [id number], [id number] ####[facility] (DEFAULT)[address] [place] [address] Eosinophils/100 WBC (Bld) 1.5 % Normal 0.9-4.0 [facility] Comment on above: Performed By: #### 7 [id number], [id number] ####[facility] (DEFAULT)[address] [place] [address] Lymphocytes (Bld) [#/Vol] 1.5 x10 Normal 1.3-2.9 [facility] Comment on above: Performed By: #### 7 [id number], [id number] ####[facility] (DEFAULT)[address] [place] [address] Lymphocytes/100 WBC (Bld) 20 % Normal 14-48 [facility] Comment on above: Performed By: #### 7 [id number], [id number] ####[facility] (DEFAULT)[address] [place] [address] Cotton Abs# 0.8 x10 Normal 0.0-0.8 [facility] Comment on above: Performed By: #### 7 [id number], [id number] ####[facility] (DEFAULT)[address] [place] [address] Neut Abs# 5.0 x10 Normal 1.5-9.2 [facility] Comment on above: Performed By: #### 7 [id number], [id number] ####[facility] (DEFAULT)[address] [place] [address] Neutrophils/100 WBC (Bld) 67 % Normal 44-88 [facility] Comment on above: Performed By: #### 7 [id number], [id number] ####[facility] (DEFAULT)[address] [place] [address] CBC w/ Auto Diffon 0 Erythrocyte distribution width (RBC) [Ratio] 14.0 % Normal 11.5-15.0 [facility] Comment on above: Performed By: #### 7 [id number], [id number] ####[facility] (DEFAULT)[address] [place] [address] Hematocrit (Bld) [Volume fraction] 50.0 % Normal 34.8-51.9 [facility] Comment on above: Performed By: #### 7 [id number], [id number] ####[facility] (DEFAULT)[address] [place] [address] Hemoglobin (Bld) [Mass/Vol] 16.0 g/dL Normal 11.8-17.7 [facility] Comment on above: Performed By: #### 7 [id number], [id number] ####[facility] (DEFAULT)[address] [place] [address] Man Diff? Auto Normal [facility] Comment on above: Performed By: #### 7 [id number], [id number] ####[facility] (DEFAULT)[address] [place] [address] MCH (RBC) [Entitic mass] 30 pg Normal 24-34 [facility] Comment on above: Performed By: #### 7 [id number], [id number] ####[facility] (DEFAULT)[address] [place] [address]377 MCHC (RBC) [Mass/Vol] 32 g/dL Normal 26-37 [facility] Comment on above: Performed By: #### 7 [id number], [id number] ####[facility] (DEFAULT)[address] [place] [address]993 MCV (RBC) [Entitic vol] 93 fL Normal 81-100 [facility] Comment on above: Performed By: #### 7 [id number], [id number] ####[facility] (DEFAULT)[address] [place] [address] 23675 Platelet mean volume (Bld) [Entitic vol] 9.7 fL Normal 6.3-10.2 [facility] Comment on above: Performed By: #### 7 [id number], [id number] ####[facility] (DEFAULT)[address] [place] [address]387 Platelets (Bld) [#/Vol] 265 x10 Normal 138-427 [facility] Comment on above: Performed By: #### 7 [id number], [id number] ####[facility] (DEFAULT)[address] [place] [address] 86851 RBC (Bld) [#/Vol] 5.38 x10 High 3.70-5.30 [facility] Comment on above: Performed By: #### 7 [id number], [id number] ####[facility] (DEFAULT)[address] [place] [address]9966 WBC (Bld) [#/Vol] 7.4 x10 [facility] Comment on above: Performed By: #### 7 [id number], [id number] ####[facility] (DEFAULT)[address] [place] [address]18[address] XR C-SPINE MIN 4 VIEWSon XR C-SPINE MIN 4 VIEWS Patient: EMPERATRIZ WILLIAM Exam Date: 02/20/2019 : 1950 Gender:M Ordering : DR NAM VELARDE M.D. Admission #: [id number] Family : Order #: [id number] CLICK HERE TO VIEW EXAM RADIOLOGY REPORT PROCEDURE: RADIOGRAPH C-SPINE MIN 4 VIEWS COMPARISON: None. INDICATIONS: Spondylosis without myelopathy FINDINGS: BONES: No acute fracture or spondylolisthesis. Bridging anterior osteophytes C4 through C7. Mild degenerative spondylosis. Mild to moderate facet osteoarthropathy DISC SPACES: Normal. No significant disc height narrowing, subluxation, or endplate abnormality. PARASPINOUS: Negative. No paraspinous abnormality is seen. OTHER: No transient spondylolisthesis with flexion or extension. CONCLUSION: 1. Moderate degenerative spondylosis with bridging anterior osteophytes Dictated by: Haylie Blanco M.D. on 02/20/2019 at 10:29 Approved by: Haylie Blanco M.D. on 02/20/2019 at 10:34 Normal [facility] XR SHOULDER RT 2V OR >on XR SHOULDER RT 2V OR > Patient: EMPERATRIZ WILLIAM Exam Date: 12/30/2018 : 1950 Gender:M Ordering : DR YAMILKA MATOS M.D. Admission #: [id number] Family : Order #: [id number] CLICK HERE TO VIEW EXAM RADIOLOGY REPORT PROCEDURE: RADIOGRAPH SHOULDER RIGHT MIN 2 VIEWS COMPARISON: None. INDICATIONS: Chronic right shoulder pain FINDINGS: BONES: Narrowing of the acromioclavicular joint with large periarticular osteophytes. Unremarkable glenohumeral joint. No fracture dislocation. SOFT TISSUES: No visible soft tissue swelling or radiopaque foreign body. OTHER: Negative. CONCLUSION: 1. Moderate degenerative changes of the acromioclavicular joint with large undersurface osteophytes which would predispose to rotator cuff injury. 2. No appreciable acute abnormality. Dictated by: Saurabh Hardy M.D. on 12/30/2018 at 13:07 Approved by: Saurabh Hardy M.D. on 12/30/2018 at 13:10 Normal [facility] XR T-SPINE 3 VIEWSon 019 XR T-SPINE 3 VIEWS Patient: ARIK WILLIAM Exam Date: 12/30/2018 : 1950 Gender:M Ordering : DR YAMILKA MATOS M.D. Admission #: [id number] Family : Order #: [id number] CLICK HERE TO VIEW EXAM RADIOLOGY REPORT PROCEDURE: RADIOGRAPH T-SPINE 3 VIEWS COMPARISON: None. INDICATIONS: Chronic thoracic spine pain FINDINGS: BONES: Mild S-shaped curvature of the thoracic spine, well below the criteria for scoliosis. No fracture, spondylolisthesis, or bone lesion. DISC SPACES: Multilevel mild degenerative disc disease. PARASPINOUS: Negative. No paraspinous abnormality is seen. OTHER: Negative. CONCLUSION: 1. Multilevel mild degenerative changes. 2. No appreciable acute abnormality. Dictated by: Saurabh Hardy M.D. on 12/30/2018 at 13:06 Approved by: Saurabh Hardy M.D. on 12/30/2018 at 13:07 Normal [facility] Vital Signs Date Time Vital Sign Value Performing Clinician Kiel hyde 12-03-2023 14:20-0400 Blood Pressure Location Sin WowcracyDeanna [facility] 12-03-2023 14:20-0400 Diastolic blood pressure 106 mm[Hg] Sin JOYNERL [facility] 12-03-2023 14:20-0400 Heart rate 72 /min Sin Tao Sales [facility] 12-03-2023 14:20-0400 Respiratory rate 16 /min Sin Tao Sales [facility] 12-03-2023 14:20-0400 Systolic blood pressure 154 mm[Hg] Sin JOYNERL [facility] 10-29-2023 15:25-0400 Body height 170.18 cm [facility] 10-29-2023 15:25-0400 Body mass index (BMI) [Ratio] 30.5 kg/m2 [facility] 10-29-2023 15:25-0400 Body weight 88.45 kg [facility] 10-29-2023 15:25-0400 Diastolic blood pressure 108 mm[Hg] [facility] 10-29-2023 15:25-0400 Heart rate 66 /min [facility] 10-29-2023 15:25-0400 Systolic blood pressure 178 mm[Hg] [facility] Encounters Encounter Date Encounter Type Care Provider Facility Start: 12-03-2023 End: 12-03-2023 ambulatory YAMILKA MATOS Facility:[facility] Start: 12-03-2023 End: 12-03-2023 Patient encounter procedure Sin RODRIGUEZ [facility] Start: 11-01-2023 ambulatory YAMILKA MATOS Facility:[facility] Start: 10-29-2023 End: 10-29-2023 ambulatory [facility] Work Phone: Start: 10-29-2023 End: 10-29-2023 [facility] Start: 04-01-2019 Patient encounter procedure NAM H SYD Facility:[facility] Start: 03-03-2019 End: 03-31-2019 Patient encounter procedure NAM H SYD Facility:[facility] Start: 02-20-2019 End: 02-21-2019 Patient encounter procedure NAM H SYD Facility:[facility] Start: 12-30-2018 End: 12-31-2018 Patient encounter procedure YAMILKA MATOS Facility: Procedures Date Procedure Procedure Detail Performing Clinician Arthroscopy of shoulder Primo reginald RODRIGUEZ Trichilemmal cyst (disorder) Sin RODRIGUEZ Plan of Treatment Date Care Activity Detail Author Start: 10-29-2023 Patient referral [facility] Work Phone: Patient referral [facility] Work Phone: Immunizations Immunization Date Immunization Notes Care Provider Fa cility 12-25-2022 COVID-19 (PFIZER) 12Y and older [facility] 12-25-2022 Influenza vaccine, quadrivalent, adjuvanted [facility] 12-25-2022 influenza virus vaccine, unspecified formulation Sin RODRIGUEZ [facility] 04-13-2021 SARS-CoV-2 (COVID-19 ) mRNA-1273 vaccine Sin RODRIGUEZ [facility] 09-01-2020 SARS-CoV-2 (COVID-19 ) mRNA-1273 vaccine Sin RODRIGUEZ [facility] Comment on above: Result Comment: 2023: TPV70 08-04-2020 SARS-CoV-2 (COVID-19 ) mRNA-1273 vaccine Sin RODRIGUEZ [facility] Comment on above: Result Comment: 2023: TPV70 12-16-2019 influenza virus vaccine, unspecified formulation [facility] 03-05-2017 pneumococcal conjuga te vaccine, 13 valent [facility] 01-08-2017 influenza virus vaccine, unspecified formulation [facility] Payers Date Payer Category Payer Medicare [id number] 1950 Unknown [id number] 1950 Unknown [id number] [id number] [id number] 1950 Unknown [id number] [id number] [id number] 1950 Unknown [id number] [id number] [id number] 1950 Unknown [id number] [id number] Social History Date Type Detail [facility] Work Phone: Start: 1950 Sex Assigned At Male F [facility] Start: 12-03-2023 Tobacco smoking status Never s moked tobacco (finding) [facility] Tobacco smoking status Never [facility] Sex Assigned At Male [facility] Functional Status Date Assessment Result Facility 12-03-2023 Functional Status N/A [facility] Note 12-03-2023 Note Date & Type Note Facility 12-03-2023 Note General Surgery Offi ce/Clinic Note Chief Complaint consultation for abdominal wall mass HPI Staff 73 year old male presents on consultation from Dr. Matos for abdominal wall mass. Reports noting small nodule to epigastric area approximately 10 years ago. Verbalized this has gradually increased in size. Reports soreness to touch. Denies drainage. History of Present Illness 73 yo male with h/o CAD, CVA, htn, hyperlipidemia, PVD, referred for enlarging subcutaneous nodule upper abd wall; present for over 10 years, gradually enlarging, sore at times, no drainage; no imaging; h/o other cysts removed in the past; no asa or NSAID use; no tobacco use. Review of Systems PHQ Score Initial Depression Screen Score: 0 SCORE ROS - Provider Constitutional: no fever, no sweats, no weight loss. Eyes: no glasses, no blurred vision, no visual loss. ENMT: no dentures, no hoarseness, no swallowing difficulties, no hearing loss, no ear infection(s), no nose bleeds. Cardiovascular: normal blood pressure, no chest pain, regular heartbeat, no heart murmur. Respiratory: no shortness of breath, no cough, no asthma, no wheezing. Gastrointestinal: no nausea, no vomiting, no diarrhea, no constipation, no blood in stool, no change in bowel habits, no abdominal pain, no hepatitis. Genitourinary: no kidney stones, no urine infection, no dysuria. Musculoskeletal: no pain, no weakness. Skin: no changing moles, no rash, yes skin lumps. Neurologic: no seizures, no epilepsy, no headache. Psychiatric: no emotional or psychiatric problem. Heme/Lymph: no bleeding problems, no anemia, no blood clots, no transfusions. Allergy/Immunologic: no swollen lymph nodes/glands, no IV drug abuse. Other: Additional ROS info: Except as noted in the above Review of Systems and in the History of Present Illness, all other systems have been reviewed and are negative or noncontributory. Physical Exam Vitals & Measurements HR: 72(Peripheral) RR: 16 BP: 154/106 HT: 67 in HT: 170 cm WT: 89.1 kg WT: 196.02 lb BMI: 30.83 HEENT: normal conjunctiva, sclera clear, no scleral icterus, EOM intact, PERRLA, oral mucosa moist without lesions. Neck: trachea midline, no mass, symmetric, no thyromegaly or nodules, no adenopathy Respiratory: lungs CTA, respirations non labored. Cardiovascular: regular rate and rhythm, no murmur, no pedal edema or varicosities. Gastrointestinal: soft, non distended, no tenderness, 3 cm superficial subcutaneous nodule epigastrium, right of midline; some skin discoloration, no open areas, no drainage, no palpable hernias, diastasis recti no, no hepatosplenomegaly; normal bs Musculoskeletal: normal gait, digits and nails without infection, nodes, cyanosis, clubbing. Skin: no rashes, no lesions, no ulcers, no subcutaneous nodules, induration. Psychiatric/Neuro: oriented to time, place, person, judgement normal, affect appropriate for age, insight intact, no focal deficits. Tests: review of old records completed , Discussed surgical options, risks, and possible complications with patient. Assessment/Plan 1. Abdominal wall mass (R22.2: Localized swelling, mass and lump, trunk) likely epidermal cyst; plan excisional biopsy under local anesthesia at [facility] for definitive diagnosis and treatment; informed consent obtained. Follow-up No qualifying data available Problem List/Past Medical History Ongoing Abdominal mass Abdominal wall mass BMI 30.0-30.9,adult CAD (coronary artery disease) Diabetes History of CVA (cerebrovascular accident) Hyperlipidemia Obesity due to excess calories PVD (peripheral vascular disease) Historical No qualifying data Procedure/Surgical History Arthroscopy of shoulder, Pilar cyst. Medications losartan 50 mg Tab, 50 mg= 1 tab(s), Oral, Daily SUMAtriptan 100 mg Tab, 100 mg= 1 tab(s), Oral, Daily, PRN tiZANidine 4 mg Tab, 4 mg= 1 tab(s), Oral, Bedtime Allergies No Known Allergies No Known Medication Allergies Social History Alcohol - Denies Alcohol Use, 12/03/2023 Substance Abuse Current, Marijuana, 1-2 times per month, 12/03/2023 Tobacco Never (less than 100 in lifetime) Tobacco Use:. Never Smokeless Tobacco Use:., 12/03/2023 Family History COPD: Father. Diabetes mellitus type 2: Mother. Immunizations Vaccine Date Status Comments influenza virus vaccine, inactivated 12/25/2022 Recorded SARS-CoV-2 (COVID-19) mRNA-1273 vaccine 04/13/2021 Recorded SARS-CoV-2 (COVID-19) mRNA-1273 vaccine 09/01/2020 Recorded 2023-11-12: [id number] SARS-CoV-2 (COVID-19) mRNA-1273 vaccine 08/04/2020 Recorded 2023-11-12: TPV70 [facility] Comment on above: Result Comment: Elec tronically Signed By: MICHAEL BECKER, Sin Mendoza\Date and Time Signed: 12/03/23 14:51 EDT Hospital Discharge instructions 10-29-2023 Note Date & Type Note Facility 10-29-2023 Hospital Discharg e instructions Ambulatory OrdersReferral to General Surgery Time Frame: 10/29/23, Location: None [facility] Work Phone: Evaluation + Plan note Note Date & Type Note Facility Evaluation + Plan note No data available for this section [facility] Evaluation note Note Date & Type Note Facility Evaluation note Diagnosis Onset Date Abdominal wall mass acute [facility] Work Phone: Hospital Discharge instructions Note Date & Type Note Facility Hospital Discharge instructions No data available for this section [facility] Progress note Note Date & Type Note Facility Progress note No data available for this section [facility] Summary Purpose Family History No Family History Records FoundNo Family History Records Found No data available for this section No Family History Records Found Advance Directives No Advanced Directives Records Found Advance Directive Response Recorded Date/ Time Advance Directives No October 28 3:18pm Procedure Findings Note Patient: EMPERATRIZ WILLIAM Age: 69 years Sex: MALE : 1950 Associated Diagnoses: None Author: Haylie Esqueda DO Postoperative Information Post Operative Note: Post Anesthesia Care Unit. Review / Management Condition: Stable. Assessment Anesthetic outcome No anesthetic complications noted. Plan Transfer/ Discharge: Patient can be discharged from PACU when criteria met. Condition good. [Electronically Signed on: 01/18/2020 16:38 EDT] Haylie Esqueda DO [Verified on: 01/18/2020 16:38 EDT] Haylie Esqueda DO Note [facility] SURGERY Clinical Discharge Summary PERSON INFORMATION Name EMPERATRIZ WILLIAM Age 69 Years 1950 Sex MALE Language Gambian PCP Yamilka Matos MD Marital Status [facility] Ambulatory Surgery [facility] 17-12-23 Acct# Arrival 01/18/2020 07:48:00 Visit Reason SURGERY-RIGHT SHOULDER ARTHROSCOPY Acuity LOS 010 05:19 Address: [address] [place] [address] Comment: PROVIDER INFORMATION VITALS INFORMATION Vital Sign Triage Latest Temp Oral Temp Temporal Temp Intravascular Temp Axillary Temp Rectal 02 Sat 97 % 92 % Respiratory Rate Peripheral Pulse Rate Apical Heart Rate Blood Pressure / 101 mmHg / 100 mmHg Comment: MEDICAL INFORMATION Allergy Info: No Known Medication Allergies Prescriptions Given: acetaminophen (acetaminophen 500 mg oral tablet) 2 tab(s) Oral 2 times a day as needed for pain. acetaminophen-oxycodone (Percocet 5 mg-325 mg oral tablet) 1 tab(s) Oral Every 6 hours as needed as needed for pain., Home script Dr. Goldsmith (more content not included)... Hospital Course Note [facility] SURGERY Clinical Discharge Summary PERSON INFORMATION Name EMPERATRIZ WILLIAM Age 69 Years 1950 Sex MALE Language Gambian PCP Yamilka Matos MD Marital Status [facility] Ambulatory Surgery [facility] 17-12-23 Acct# Arrival 01/18/2020 07:48:00 Visit Reason SURGERY-RIGHT SHOULDER ARTHROSCOPY Acuity LOS 010 05:19 Address: [address] [place] [address] Comment: PROVIDER INFORMATION VITALS INFORMATION Vital Sign Triage Latest Temp Oral Temp Temporal Temp Intravascular Temp Axillary Temp Rectal 02 Sat 97 % 92 % Respiratory Rate Peripheral Pulse Rate Apical Heart Rate Blood Pressure / 101 mmHg / 100 mmHg Comment: MEDICAL INFORMATION Allergy Info: No Known Medication Allergies Prescriptions Given: acetaminophen (acetaminophen 500 mg oral tablet) 2 tab(s) Oral 2 times a day as needed for pain. acetaminophen-oxycodone (Percocet 5 mg-325 mg oral tablet) 1 tab(s) Oral Every 6 hours as needed as needed for pain., Home script Dr. Goldsmith (more content not included)... Chief Complaint and Reason for Visit Chief Complaint lump on belly Reason for Visit Abdominal wall mass Additional Source Comments (unrecognized sect ion and content) No Status Records FoundNo Status Records FoundNo Status Records Found INFORMATION SOURCE (unrecogn ized section and content) DATE CREATED AUTHOR 06/25/2019 [facility] DATE CREATED AUTHOR AUTHOR'S ORGANIZ ATION 02/22/2020 [facility] DATE CREATED AUTHOR AUTHOR'S ORGANIZ ATION 12/05/2023 [facility] Care Teams (unrecognized sec tion and content) Team Status: Active Member Role Status Dates Yamilka Matos MD Primary Care Provider Active Team Status: Inactive Member Role Status Dates Yamilka Matos MD Primary Care Provide r, Attending Provider Active Start: October 29, 2023 End: October 29, 2023 Goals (unrecognized section and content) Goals may be documented in a n alternate section No data available for this section FOR RECORDS PERTAINING TO PATIENTS WHO ARE OR HAVE BEEN ENROLLED IN A CHEMICAL DEPENDENCY/SUBSTANCEABUSE PROGRAM, SOME INFORMATION MAY BE OMITTED. This clinical summary was aggregated from multiple sources. Caution should be exercised in using it in the provision of clinical care. This summary normalizes information from multiple sources, and as a consequence, information in this document may materially change the coding, format and clinical context of patient data. In addition, data may be omitted in some cases. CLINICAL DECISIONS SHOULD BE BASED ON THE PRIMARY CLINICAL RECORDS. [employer] provides no warranty or guarantee of the accuracy or completeness of information in this document.
[2023-12-18 12:53] VITALS: BP 185/113; PULSE 54; O2SAT 97
[2023-12-18 12:54] VITALS: BP 142/78; PULSE 45; O2SAT 97
[2023-12-18] MEDS: BUPIVACAINE HCL 0.5% PF 50 MG/10 ML VIAL 6 ML INJ (13:16)
== END 2023-12-18 13:35 | disposition home or self-care (01) ==
PROVIDERS: Visit Provider Surgery
PROC: (CPT 11403; principal; 2023-12-18 10:40)
DX: L72.0 Epidermal cyst (principal); R52 Pain, unspecified
CPT/HCPCS: 11403; 12031; 88305; J0665

== ENCOUNTER 2024-02-18 07:26 | Outpatient (OUT) | payer MEDICARE, SELFPAY ==
--- OUTSIDE RECORDS SUMMARY | 2024-02-18 07:28 | XMS_ITS | CCD ---
Author Organization [facility] Care Team Providers Care Blending Supervisor Name Role Phone YAMILKA MATOS Admitting Unavailable [...] Care Unavailable SYD, NAM H Admitting Unavailable YSD, NAM H Attending Unavailable YAMILKA MATOS Primary Care Physician [phone] MD Sin Shin Attending Provider Sin Shin Admitting Unavailable Nilanamaria, Sin Kang Attending Unavailable Sin SHIN Attending Unavailable Sin SHIN Attending Unavailable YAMILKA MATOS Referring Unavailable Sin SHIN Attending Unavailable MD Sin Shin Attending Provider Allergies Allergy Classification Reported Allergen(s) Allergy Type Date of Onset Reaction(s) Facility (1 source) No Known Medication Allergies; Translations: [No Known Medication Allergies] Propensity to adverse reactions (disorder) [facility] Repository Medications Current Medications Medication Drug Class(es) Dates Sig (Normalized) Sig (Original) amLODIPine 5 mg oral tablet (1 source) Dihydropyridine Calcium Channel Serena Start: 02-04-2024 take 5 mg by mouth once daily Amlodipine Active 5 MG PO Daily February 04, 2024 12:00am Losartan (7 sources) Angiotensin 2 Receptor Serena Start: 12-04-2023 take 1 tablet by mouth once daily Losartan Active 0 .ROUTE .COMPLEX December 04, 2023 12:24pm TAKE 1 TABLET BY MOUTH EVERY DAY Start: 12-04-2023 take 1 tablet by des th once daily Losartan Active 0 .ROUTE .COMPLEX December 04, 2023 1:24pm TAKE 1 TABLET BY MOUTH EVERY DAY Start: 10-29-2023 End: 12-04-2023 take 50 mg by mouth once daily Losartan Discontinued 5 0 MG PO daily October 28, 2023 11:00pm December 04, 2023 12:24pm SUMAtriptan 100 mg oral tablet (8 sources) Serotonin-1b and Serotonin-1d Receptor Agonist Start: 07-22-2023 End: 10-29-2023 take 1 tablet by mouth once daily as needed, then take 1 tablet by mouth every two hours as needed Sumatriptan Succinate Active 100 MG PO Every 2 hours October 29, 2023 2:47pm TAKE 1 TABLET ONCE DAILY NEEDED FOR MIGRAINE MAY REPEAT 1 TAB IN 2 HRS IF NEEDED *MAX 2/DAY* tiZANidine 4 mg oral tablet (5 sources) Central alpha-2 Adrenergic Agonist Start: 10-25-2023 take 1 tablet by mouth once daily at bedtime Tizanidine Active 1 TAB PO Daily at bedtime October 24, 2023 11:00pm FreeTextSig: TAKE 1 TABLET BY MOUTH EVERYDAY AT BEDTIME; Note: Source Status: Start; Refills: 1; Qty: 90 Tablet; Provider: Carlo Prather ( ) Start: 10-25-2023 Problems Active Problems Problem Classification Problem Date Documented Date Episodic/Chronic Coronary atherosclerosis and other heart disease (2 sources) Coronary arteriosclerosis 11-12-2023 Chronic Diabetes mellitus without complication (2 sources) Diabetes mellitus 11-12-2023 Chronic Disorders of lipid metabolism (2 sources) Hyperlipidemia 11-12-2023 Chronic Essential hypertension (4 sources) Essential hypertension; Translations: [Essential (primary) hypertension] 10-30-2023 Chronic Headache; including migraine (3 sources) Migraine; Translations: [Migraine, unspecified, not intractable, without status migrainosus] 10-30-2023 Chronic Osteoarthritis (1 source) Primary osteoarthritis, right shoulder; Translations: [PRIMARY OSTEOARTHRITIS RT SHOULDER] Onset: 04-03-2019 Chronic Other acquired deformities (4 sources) Scoliosis, unspecified; Translations: [SCOLIOSIS UNSPECIFIED] Onset: 03-03-2019 Chronic Other circulatory disease (2 sources) History of cerebrovascular accident 11-12-2023 Episodic Other nutritional; endocrine; and metabolic disorders (2 sources) Body mass index 30+ - obesity 12-03-2023 Chronic Other nutritional; endocrine; and metabolic disorders (2 sources) Obesity caused by energy imbalance 11-12-2023 Chronic Other screening for suspected conditions (not mental disorders or infectious disease) (2 sources) Patient encounter status; Translations: [Encounter for screening for malignant neoplasm of prostate] 02-04-2024 Episodic Other skin disorders (7 sources) Abdominal mass; Translations: [Localized swelling, mass and lump, trunk] 10-29-2023 Episodic Other skin disorders (2 sources) Localized swelling, mass and lump, trunk; Translations: [Abdominal or pelvic swelling, mass, or lump, unspecified site] 10-29-2023 Episodic Other skin disorders (1 source) Mass of trunk; Translations: [Localized swelling, mass and lump, trunk] Onset: 12-03-2023 Episodic Peripheral and visceral atherosclerosis (2 sources) Peripheral vascular disease 11-12-2023 Chronic Spondylosis; intervertebral [...] Finalized Date/Time: 02/22/20 12:39:09 Pt. Name: EMPERATRIZ WILLIAMO.B./Sex: 1950 MALE Med Rec #: [id number] Physician: Michael Amaya DO Financial #: [id number] Pt. Type: D Room/Bed: / Admit/Disch: 01/18/20 [...] Halblaub, Sidsel RN Role Performed Anesthesiologist of Hoop Driving Machine Operator Hoop Driving Machine Operator Record Time In 01/18/20 09:50:00 01/18/20 09:50:00 [...] Documentation Second place to change surgery times. [facility] Coding Summaryon 01-21-2020 Coding Summary CODING DATE: [facility] STATUS: Home PAYOR: Medicare ADMIT DX: REASON [...] Anya Alcala Date Saved: 01/21/2020 12:55 pm [facility] Consent Formson 01-21-2020 Consent Forms [id number]#1.00O TGTIFF [facility] Coding Summaryon 01-19-2020 Coding Summary CODING DATE: [facility] STATUS: Home PAYOR: Medicare APC DESCRIPTION 5114 Level 4 Musculoskeletal Procedures ADMIT DX: REASON FOR VISIT DX: M19.011 Primary osteoarthritis, right shoulder FINAL DX: PRINCIPAL: M19.011 Primary osteoarthritis, right shoulder SECONDARY: M75.41 Impingement syndrome of right shoulder S43.431A Superior glenoid labrum lesion of right shoulder, initial encounter PYMT PROC APC STAT DESCRIPTION DOCTOR NAME DATE 44481 5114 J1 Arthroscopy, shoulder, Michael Amaya And 01/18/2020 surgical; repair of SLAP lesion RT Right side (used to identify procedures performed on the right side of the body) 32707 Arthroscopy, shoulder, Michael Amaya And 01/18/2020 surgical; distal claviculectomy including distal [...] Peterson Revised Date Saved: 01/19/2020 10:36 am [facility] Consent Formson 01-19-2020 Consent Forms [id number]#1.00O [facility] Discharge Instructionson Discharge Instructions [id number]#1.00O [facility] History and Physicalon 01-18 History and Physical [id number]#1.00O [facility] Medication Managementon 12-312020 Medication Management [id number]#1.00O [facility] Outside Recordson 01-19-2020 Outside Records [id number]#1.00O [facility] Provider Orderson 01-19-2020 Provider Orders [id number]#1.00O [facility] Telemetry Stripson 0 Telemetry Strips [id number]#1.00O [facility] Anesthesia Noteon 01-18-2020 Anesthesia Note Patient: [...] or recorded. Procedure history: Tonsillectomy and adenoidectomy ([id number]). Social History Electronic Cigarette/Vaping Assessment Electronic Cigarette [...] 17 10:00) Resp Rate 16 br/min (JAN 17 10:00) SBP H 154mmHg (JAN 17 10:00) DBP 88 mmHg (JAN 17 10:00) SpO2 100 % (JAN 17 10:00) General: Alert and oriented, No acute distress. Airway: Mallampati classification: II (soft palate, fauces, uvula visible). Temporomandibular joint mobility: Good. Mouth: Dentures ( Upper and lower dentures ). Neck: Non-tender, Full range of motion. Respiratory: Lungs are clear to auscultation. Cardiovascular: Normal rate, Regular rhythm. Neurologic: Alert, Oriented. Review / Management Laboratory Results Plan [employer] Anesthesiologists#(ASA) physical status classification: Class [...] 01/18/2020 10:35 EDT] Haylie Esqueda DO Normal [facility] Inpatient Patient Summaryon 01-18-2020 Inpatient Patient Summary [place] [id number] Patient Discharge Instructions Name: EMPERATRIZ WILLIAM : 1950 Patient Address: [address] [place] [address] Primary Care Provider: Name: Yamilka Matos MD After you are discharged if you find you have any questions, please, call [phone] ext [phone] to speak to a nurse. Discharge Diagnosis: [...] alcohol and/or drug addiction problems; contact the [facility] 22/10 Crisis Hotline -Text 4HRHT ls 105283. If you received any narcotics, sedation, or [...] business decisions or sign any legal documents [facility] would like to thank you for allowing us to assist you with your healthcare needs. The following includes patient education materials and information regarding your injury/illness. EMPERATRIZ WILLIAM has been given the following list of follow-up instructions, prescriptions, and patient education materials: Follow-up Instructions With: Address: When: CHANTAL KRAUSE [address] [place] [address] [address] [place] [address] Business (1) 01/27/2020 2:45 PM With: Address: When: Yamilka Matos [address] [place] [address] [place] [address] Business (1) Medications During the [...] needed for pain., Home script Dr. Goldsmith 01-18-2020 cloNIDine (cloNIDine 0.1 mg oral tablet) [...] or concerns, please call the office at [phone] -Follow up as scheduled Viruses or Bacteria [...] for Disease Control and Prevention November 2013 [facility] MAGR Intraoperative Recordon 01-18-2020 MAGR Intraoperative Record MAGR Intra-Op Record Summary Primary Physician: Michael Amaya DO Finalized Date/Time: 01/18/20 12:00:00 Pt. Name: EMPERATRIZ WILLIAM DEZ /Sex: 1950 MALE Med Rec #: [id number] Physician: Michael Amaya DO Financial #: [id number] Pt. Type: D Room/Bed: / Admit/Disch: 01/18/20 07:48:00 - Institution: Case Times MAGR Entry 1 Patient In Room Time 01/18/20 10:07:00 Out Room Time 01/18/20 11:55:00 Anesthesia Start Time 01/18/20 10:07:00 Stop Time 01/18/20 11:57:00 Surgery Start Time 01/18/20 10:42:00 Stop Time 01/18/20 11:41:00 Last Modified By: Neela Carney RN 01/18/20 11:54:51 Case Attendance MAGR Entry 1 Entry 2 Entry 3 Case Attendee Michael Amaya David DO Ricci RN, Jessica L Andrew DO Role Performed Surgeon - Primary Anesthesiologist of Hoop Driving Machine Operator Record Time In 01/18/20 10:07:00 01/18/20 10:07:00 [...] Strickland Role Performed Scrub Personnel Scrub Personnel Hoop Driving Machine Operator Time In 01/18/20 10:07:00 01/18/20 10:07:00 01/18/20 [...] Michael Amaya Outcome Met (O.130) Yes Davis DO Last Modified By: Neela Carney RN 01/18/20 [...] By: Davis JOHNSTON Size 2.9 X 12.5MM Oven Press Tender [employer] Catalog # [id number] Lot Number [id number] Expiration Date 02/29/20 Implant Usage Data Site Shoulder R Quantity 2 Datacap Developer Sterility Outcome Met (O.30) Yes Last Modified [...] Signed By: Neela Carney RN 01/18/20 12:00 [facility] MAGR Intraoperative Record MAGR Intra-Op Record Summary Primary Physician: Finalized Date/Time: 01/18/20 10:08:30 Pt. Name: EMPERATRIZ WILLIAM /Sex: 1950 MALE Med Rec #: [id number] Physician: Michael Amaya DO Financial #: [id number] Pt. Type: D Room/Bed: / Admit/Disch: 01/18/20 [...] Halblaub, Sidsel RN Role Performed Anesthesiologist of Hoop Driving Machine Operator Hoop Driving Machine Operator Record Time In 01/18/20 09:50:00 01/18/20 09:50:00 [...] Signed By: Liss Patton RN 01/18/20 10:08 [facility] MAGR PACU Record Summary Primary Physician: Michael Amaya DO Finalized Date/Time: 01/18/20 12:57:04 Pt. Name: EMPERATRIZ WILLIAM /Sex: 1950 MALE Med Rec #: [id number] Physician: Michael Amaya DO Financial #: [id number] Pt. Type: D Room/Bed: / Admit/Disch: 01/18/20 07:48:00 - Institution: PACU Case Times MAGR Entry 1 In PACU I 01/18/20 11:57:00 Discharge from PACU 01/18/20 12:07:00 I Last Modified By: Annie Dean RN 01/18/20 12:57:02 General Comments: Pt discharged from PACU using discharge criteria per DFr. Esqueda. Finalized By: Annie Dean RN Document Signatures Signed By: Annie Dean RN 01/18/20 12:57 [facility] 01-18-2020 MAGR Postoperative Record MAGR Phase II Record Summary Primary Physician: Michael Amaya DO Finalized Date/Time: 01/18/20 15:06:00 Pt. Name: EMPERATRIZ WILLIAM/Sex: 1950 MALE Med Rec #: [id number] Physician: Michael Amaya DO Financial #: [id number] Pt. Type: D Room/Bed: / Admit/Disch: 01/18/20 [...] Signed By: Kasie Strong RN 01/18/20 15:06 [facility] MAGR Preoperative Record MAGR Pre-Op Record Summary Primary Physician: Michael Amaya DO Finalized Date/Time: 01/18/20 10:09:10 Pt. Name: EMPERATRIZ WILLIAM/Sex: 1950 MALE Med Rec #: [id number] Physician: Michael Amaya DO Financial #: [id number] Pt. Type: D Room/Bed: / Admit/Disch: 01/18/20 [...] Signed By: Liss Patton RN 01/18/20 10:09 [facility] Operative Report - Surgeon/P francine 01-18-2020 Operative [...] on: 01/18/2020 11:59 EDT] Michael Amaya DO [facility] Patient Handouton 01-18-[address] WINTERS [...] or concerns, please call the office at [phone] -Follow up as scheduled Normal [facility] 2018 Novel Coronavirus (CoVI D-19), CHRIS LCon 01-15-2020 SARS-CoV-2, CHRIS (COVID-19) LC Not Detected Not Detected [facility] Comment on above: Order Comment: [id number] Result Comment: This nucleic acid amplification test was developed and its performance characteristics determined by [employer]. Nucleic acid amplification tests include PCR and [...] detected) result in this assay. Performed At: [facility] [address] [facility], [place] [id number] Donny Duran MD Ph:[phone] Performed By: #### 6 [id number] ####[facility] (DEFAULT)[address] [place] [address] Progress Note - Nurseon 12-30 Progress Note - Nurse chart reviewed per Dr Whyte, no further orders [Electronically Signed on: 01/15/2020 15:39 EDT] Felicitas Manley RN [Verified on: 01/15/2020 15:39 EDT] Felicitas Manley RN [facility] Progress Note - Nurse Pre-op call for 01-18-2020 surgery don and informed patient of arrival time of 0745, NPO status after midnight except for meds that he was instructed to take and no valuables- patient with understanding. [Electronically Signed on: 01/15/2020 09:49 EDT] Annie Dean RN [Verified on: 01/15/2020 09:49 EDT] Annie Dean RN [facility] Progress Note - Nurseon 12-30 Progress Note - Nurse Nasal swab performed without complication. Patient tolerated well. Education given. Patient verbalized understanding. [Electronically Signed on: 01/14/2020 14:48 EDT] Ana Cristina Taylor RN [Verified on: 01/14/2020 14:48 EDT] Ana Cristina Taylor RN [facility] Coding Summaryon 01-12-2020 Coding Summary CODING DATE: 020 [facility] STATUS: Home PAYOR: Medicare APC DESCRIPTION 5733 [...] Samanta Tubbs Date Saved: 01/12/2020 08:14 am [facility] Progress Note - Nurseon 12-30 INR Coag [...] Dean RN [Verified on: 01/12/2020 13:15 EDT] Annie Dean RN [facility] Advance Directive Documentso n 01-11-2020 Advance Directive Documents [id number]#1.00O TGTIFF [facility] .Auto Diff 1on 01-08-2020 Auto Loup % 11 % Normal 04-12 [facility] Comment on above: Performed By: #### 7 [id number], [id number] ####[facility] (DEFAULT)[address] [place] [address] Baso Abs# 0.0 x10 Normal 0.0-0.2 [facility] Comment on above: Performed By: #### 7 [id number], [id number] ####[facility] (DEFAULT)[address] [place] [address] Basophils/100 WBC (Bld) 0.3 % Normal 0.2-2.0 [facility] Comment on above: Performed By: #### 7 [id number], [id number] ####[facility] (DEFAULT)[address] [place] [address] Eos Abs# 0.1 x10 Normal 0.0-0.4 [facility] Comment on above: Performed By: #### 7 [id number], [id number] ####[facility] (DEFAULT)[address] [place] [address] 27031 Eosinophils/100 WBC (Bld) 1.5 % Normal 0.9-4.0 [facility] Comment on above: Performed By: #### 7 [id number], [id number] ####[facility] (DEFAULT)[address] [place] [address] Lymphocytes (Bld) [#/Vol] 1.5 x10 Normal 1.3-2.9 [facility] Comment on above: Performed By: #### 7 [id number], [id number] ####[facility] (DEFAULT)[address] [place] [address] 65753 Lymphocytes/100 WBC (Bld) 20 % Normal 14-48 [facility] Comment on above: Performed By: #### 7 [id number], [id number] ####[facility] (DEFAULT)[address] [place] [address] Loup Abs# 0.8 x10 Normal 0.0-0.8 [facility] Comment on above: Performed By: #### 7 [id number], [id number] ####[facility] (DEFAULT)[address] [place] [address] 82783 Neut Abs# 5.0 x10 Normal 1.5-9.2 [facility] Comment on above: Performed By: #### 7 [id number], [id number] ####[facility] (DEFAULT)[address] [place] [address] Neutrophils/100 WBC (Bld) 67 % Normal 44-88 [facility] Comment on above: Performed By: #### 7 [id number], [id number] ####[facility] (DEFAULT)[address] [place] [address] CBC w/ Auto Diffon 0 Erythrocyte distribution width (RBC) [Ratio] 14.0 % Normal 11.5-15.0 [facility] Comment on above: Performed By: #### 7 [id number], [id number] ####[facility] (DEFAULT)[address] [place] [address] Hematocrit (Bld) [Volume fraction] 50.0 % Normal 34.8-51.9 [facility] Comment on above: Performed By: #### 7 [id number], [id number] ####[facility] (DEFAULT)[address] [place] [address] Hemoglobin (Bld) [Mass/Vol] 16.0 g/dL Normal 11.8-17.7 [facility] Comment on above: Performed By: #### 7 [id number], [id number] ####[facility] (DEFAULT)[address] [place] [address] Man Diff? Auto Normal [facility] Comment on above: Performed By: #### 7 [id number], [id number] ####[facility] (DEFAULT)[address] [place] [address] 16417 MCH (RBC) [Entitic mass] 30 pg Normal 24-34 [facility] Comment on above: Performed By: #### 7 [id number], [id number] ####[facility] (DEFAULT)[address] [place] [address] 64188 MCHC (RBC) [Mass/Vol] 32 g/dL Normal 26-37 [facility] Comment on above: Performed By: #### 7 [id number], [id number] ####[facility] (DEFAULT)[address] [place] [address] 67261 MCV (RBC) [Entitic vol] 93 fL Normal 81-100 [facility] Comment on above: Performed By: #### 7 [id number], [id number] ####[facility] (DEFAULT)[address] [place] [address]6827 Platelet mean volume (Bld) [Entitic vol] 9.7 fL Normal 6.3-10.2 [facility] Comment on above: Performed By: #### 7 [id number], [id number] ####[facility] (DEFAULT)[address] [place] [address]209 Platelets (Bld) [#/Vol] 265 x10 Normal 138-427 [facility] Comment on above: Performed By: #### 7 [id number], [id number] ####[facility] (DEFAULT)[address] [place] [address] 67751 RBC (Bld) [#/Vol] 5.38 x10 High 3.70-5.30 [facility] Comment on above: Performed By: #### 7 [id number], [id number] ####[facility] (DEFAULT)[address] [place] [address] 56581 WBC (Bld) [#/Vol] 7.4 x10 [facility] Comment on above: Performed By: #### 7 [id number], [id number] ####[facility] (DEFAULT)[address] [place] [address]10 XR C-SPINE MIN 4 VIEWSon XR C-SPINE MIN 4 VIEWS Patient: EMPERATRIZ WILLIAM Exam Date: 02/20/2019 : 1950 Gender:M Ordering : DR NAM VELARDE M.D. Admission #: [id number] Family : Order #: [id number] CLICK HERE TO VIEW EXAM RADIOLOGY REPORT [...] Blanco M.D. on 02/20/2019 at 10:34 Normal [facility] XR SHOULDER RT 2V OR >on XR SHOULDER RT 2V OR > Patient: EMPERATRIZ WILLIAM Exam Date: 12/30/2018 : 1950 Gender:M Ordering : DR YAMILKA MATOS M.D. Admission #: [id number] Family : Order #: [id number] CLICK HERE TO VIEW EXAM RADIOLOGY REPORT [...] Hardy M.D. on 12/30/2018 at 13:10 Normal [facility] XR T-SPINE 3 VIEWSon 019 XR T-SPINE 3 VIEWS Patient: ARIK WILLIAM Exam Date: 12/30/2018 : 1950 Gender:M Ordering : DR YAMILKA MATOS M.D. Admission #: [id number] Family : Order #: [id number] CLICK HERE TO VIEW EXAM RADIOLOGY REPORT [...] Hardy M.D. on 12/30/2018 at 13:07 Normal [facility] Vital Signs Date Time Vital Sign Value Performing Clinician Kiel hyde 02-04-2024 13:51-0500 Body height 170.18 cm MD Sin Shin Work Phone: [facility] 02-04-2024 13:51-0500 Body mass index (BMI) [Ratio] 30.5 kg/m2 MD Sin Shin Work Phone: [facility] 02-04-2024 13:51-0500 Body weight 88.45 kg MD Sin Shin Work Phone: [facility] 02-04-2024 13:51-0500 Diastolic blood pressure 96 mm[Hg] MD Sin Shin Work Phone: [facility] 02-04-2024 13:51-0500 Heart rate 65 /min MD Sin Shin Work Phone: [facility] 02-04-2024 13:51-0500 Systolic blood pressure 174 mm[Hg] MD Sin Shin Work Phone: [facility] 12-03-2023 14:20-0400 Blood Pressure Location Sin SHIN [facility] 12-03-2023 14:20-0400 Diastolic blood pressure 106 mm[Hg] Sin SHIN [facility] 12-03-2023 14:20-0400 Heart rate 72 /min Sin NILL [facility] 12-03-2023 14:20-0400 Respiratory rate 16 /min Sin JOYNERL [facility] 12-03-2023 14:20-0400 Systolic blood pressure 154 mm[Hg] Sin JOYNERL [facility] 10-29-2023 15:25-0400 Body height 170.18 cm [facility] 10-29-2023 15:25-0400 Body mass index (BMI) [Ratio] 30.5 kg/m2 [facility] 10-29-2023 15:25-040 Body weight 88.45 kg [facility] 10-29-2023 15:25-0400 Diastolic blood pressure 108 mm[Hg] [facility] 10-29-2023 15:25-040 Heart rate 66 /min [facility] 10-29-2023 15:25-0400 Systolic blood pressure 178 mm[Hg] [facility] Encounters Encounter Date Encounter Type Care Provider Facility Start: 02-04-2024 End: 02-04-2024 ambulatory MD Sin Shin Work Phone: [facility] Work Phone: Start: 02-04-2024 End: 02-04-2024 Patient encounter procedure MD Sin Shin Work Phone: [facility] Work Phone: Start: 01-31-2024 Non-patient / Non-visit MD Percy Shin Work Phone: [facility] Work Phone: Start: 01-01-2024 End: 01-01-2024 ambulatory Sin SHIN [facility] Start: 01-01-2024 End: 01-01-2024 Patient encounter procedure Sin SHIN [facility] Start: 12-18-2023 End: 12-18-2023 ambulatory Sin Shin [facility] Work Phone: Start: 12-18-2023 End: 12-18-2023 Departed Referred MD Sin Shin Work Phone: [facility] Start: 12-18-2023 End: 12-18-2023 ambulatory Sin SHIN Facility:CD:[id number] Start: 12-03-2023 End: 12-03-2023 ambulatory Sin Jorge Luis JOYNERL Facility:[facility] Start: 12-03-2023 End: 12-03-2023 Patient encounter procedure Sin Jorge Luis MICHAEL [facility] Start: 11-01-2023 ambulatory Sin JOYNERAnamaria Facility:[facility] Start: 10-29-2023 End: 10-29-2023 ambulatory [facility] Work Phone: Start: 10-29-2023 End: 10-29-2023 Patient encounter procedure [facility] Work Phone: Start: 04-01-2019 Patient encounter procedure NAM H SYD Facility:[facility] Start: 03-03-2019 End: 03-31-2019 Patient encounter procedure NAM H SYD Facility:[facility] Start: 02-20-2019 End: 02-21-2019 Patient encounter procedure NAM H SYD Facility:[facility] Start: 12-30-2018 End: 12-31-2018 Patient encounter procedure YAMILKA E CARLO Facility:H1 Procedures Date Procedure Procedure Detail Performing Clinician Start: 12-18-2023 Excision of cyst Michae l NILL Arthroscopy of shoulder Primo ael NILL Trichilemmal cyst (disorder) Sin JOYNERAnamaria Plan of Treatment Date Care Activity Detail Author Start: 10-29-2023 Patient referral [facility] Work Phone: Comprehensive metabo lic 2000 panel - Serum or Plasma [facility] Patient referral [facility] Work Phone: [facility] Immunizations Immunization Date Immunization Notes Care Provider Fa remy 12-25-2022 COVID-19 (PFIZER) 12Y and older [facility] 12-25-2022 Influenza vaccine, quadrivalent, adjuvanted [facility] 12-25-2022 influenza virus vaccine, unspecified formulation [facility] 04-13-2021 SARS-CoV-2 (COVID-19 ) mRNA-1273 vaccine [facility] 09-01-2020 SARS-CoV-2 (COVID-19 ) mRNA-1273 vaccine Sin [facility] Comment on above: Result Comment: 2023: [id number] 08-04-2020 SARS-CoV-2 (COVID-19 ) mRNA-1273 vaccine Sin [facility] Comment on above: Result Comment: 2023: [id number] 12-16-2019 influenza virus vaccine, unspecified formulation [facility] 03-05-2017 pneumococcal conjuga te vaccine, 13 valent [facility] 01-08-2017 influenza virus vaccine, unspecified formulation [facility] Payers Date Payer Category Payer Self-pay 1959 Medicare [id number] 1950 Unknown [id number] 2.16.84 [id number] 1950 Unknown [id number] 2.16.84 [id number] 1950 Unknown [id number] 2.16.84 [id number] 1950 Unknown [id number] 2.16.84 [id number] 1950 Unknown [id number] 2.16.8 [id number] 1950 Unknown [id number] 2.16.8 [id number] 1950 Unknown [id number] 2.16.8 [id number] Unknown [id number] 2.16.8 [id number] Social History Date Type Detail [facility] Work Phone: Start: 1950 Sex Assigned At Male [facility] Start: 12-03-2023 Tobacco smoking status Never s moked tobacco (finding) [facility] Tobacco [facility] Sex Assigned At [facility] Functional Status Date Assessment Result Facility 12-03-2023 Functional Status N/A [facility] Clinical Note 12-03-2023 Note Date & Type [...] plan excisional biopsy under local anesthesia at [facility] for definitive diagnosis and treatment; informed consent [...] (COVID-19) mRNA-1273 vaccine 08/04/2020 Recorded 2023-11-12: [id number] [facility] Comment on above: Result Comment: Elec tronically Signed By: MICHAEL BECKER, Sin Kang\.sharita\Date and Time Signed: 12/03/23 14:51 EDT Hospital Discharge instructions 10-29-2023 Note Date & Type Note Facility 10-29-2023 Hospital Discharg e instructions Ambulatory OrdersReferral to General Surgery Time Frame: 10/29/23, Location: None Selected [facility] Work Phone: Evaluation + Plan note Note Date & Type Note Facility Evaluation + Plan note No data available for this section [facility] [place] Evaluation note Note Date & Type Note Facility Evaluation note Diagnosis Onset Date Abdominal wall mass acute [facility] Work Phone: Evaluation note Note Date & Type Note Facility Evaluation note Diagnosis Onset Date Abdominal wall mass acute Essential (primary) hypertension acute Migraine headache [facility] Work Phone: Evaluation note Note Date & Type Note Facility Evaluation note Diagnosis Onset Date Essential (primary) hypertension acute Screening PSA (prostate specific antigen) acute [facility] Work Phone: Hospital Discharge instructions Note Date & Type Note Facility Hospital Discharge instructions No data available for this section [facility] Progress note Note Date & Type Note Facility Progress note No data available for this section [facility] [place] Summary Purpose Family History No Family History Records FoundNo Family History Records Found No data available for this section No Family History Records FoundNo Family History Records Found No data available for this section Advance Directives Advance Directive Response Recorded Date/ Time Advance Directives No October 28 3:18pm Advance Directive Response Recorded Date/ Time Advance Directives No October 28 2:18pm Procedure Findings Note Patient: EMPERATRIZ WILLIAM Age: [...] 01/18/2020 16:38 EDT] Haylie Esqueda DO Note [facility] Clinical Discharge Summary PERSON INFORMATION Name EMPERATRIZ WILLIAM Age 69 Years 1950 Sex MALE Language [place]er PCP Carlo BECKER, Yamilka Palmer Marital Status Med Service Ambulatory Surgery Acct# Arrival 01/18/2020 07:48:00 Visit Reason SURGERY-RIGHT SHOULDER ARTHROSCOPY Acuity LOS 010 05:19 Address: [address] [place] [id number] Comment: PROVIDER INFORMATION VITALS INFORMATION Vital Sign [...] (more content not included)... Hospital Course Note [facility] Clinical Discharge Summary PERSON INFORMATION Name EMPERATRIZ WILLIAM Age 69 Years 1950 Sex MALE Language [place] PCP Carlo BECKER, Yamilka Palmer Marital Status Med Service Ambulatory Surgery Acct# Arrival 01/18/2020 07:48:00 Visit Reason SURGERY-RIGHT SHOULDER ARTHROSCOPY Acuity LOS 010 05:19 Address: [address] [place] [id number] Comment: PROVIDER INFORMATION VITALS INFORMATION Vital Sign [...] belly Reason for Visit Abdominal wall mass Chief Complaint lump on belly Unknown Reason for Visit Abdominal wall mass Essential (primary) hypertension Migraine headache Chief Complaint Unknown CC Adult Risk Stratification Discuss ED Reason for Visit Essential (primary) hypertension Screening PSA (prostate specific antigen) Additional Source Comments (unrecognized sect ion and content) No Status Records FoundNo Status Records FoundNo Status Records FoundNo Status Records Found INFORMATION SOURCE (unrecogn ized section and content) DATE CREATED AUTHOR 06/25/2019 [facility] DATE CREATED AUTHOR AUTHOR'S ORGANIZ ATION 02/22/2020 [facility] DATE CREATED AUTHOR AUTHOR'S ORGANIZ ATION 12/22/2023 [facility] DATE CREATED AUTHOR AUTHOR'S ORGANIZ ATION 01/03/2024 Jalen Carbajal [facility] Care Teams (unrecognized sec tion and content) Team Status: Active Member Role Status Dates Yamilka Matos MD Primary Care Provider Active Team Status: Inactive Member Role Status Dates Yamilka Matos MD Primary Care Provide r, Attending Provider Active Start: October 29, 2023 End: October 29, 2023 Team Status: Inactive Member Role Status Dates Sin Shin MD [facility] Attending Provider Active Start: December 18, 2023 End: December 18, 2023 Team Status: Active Member Role Status Dates Yamilka Matos MD Attending Provider Active St art: January 31, 2024 Team Status: Inactive Member Role Status Dates Yamilka Matos MD Primary Care Provide r, Attending Provider Active Start: February 04, 2024 End: February 04, 2024 Goals (unrecognized section and content) Goals may be documented in a n alternate section No data available for this sectionGoals may be documented in an alternate section No data available for this sectionGoals may be documented in an alternate section FOR RECORDS PERTAINING TO PATIENTS WHO [...] BE BASED ON THE PRIMARY CLINICAL RECORDS. [email or web address] [facility]. provides no warranty or guarantee of the accuracy or completeness of information in this document.
[2024-02-18 07:38] LABS: Basophils Percent Auto 0.5 % (0.2-2.0); Eosinophils Absolute Auto 0.3 10^3/uL (0.0-0.7); Eosinophils Percent Auto 3.2 % (0.9-7.0); Hematocrit 47.2 % (42.0-54.0); Hemoglobin 15.5 g/dL (14.0-18.0); Immature Granulocytes Abs Auto 0.01 10^3/uL (0.00-0.03); Immature Granulocytes Pct Auto 0.1 % (0.0-0.5); Lymphocytes Absolute Auto 1.8 10^3/uL (1.2-3.8); Lymphocytes Percent Auto 23.1 % (20.5-60.0); Mean Corpuscular HGB Conc 32.8 g/dL (29.9-35.2); Mean Corpuscular Hemoglobin 29.6 pg (25.9-34.0); Mean Corpuscular Volume 90.2 fL (80.0-94.0); Mean Platelet Volume 9.8 fL (9.5-13.5); Monocytes Absolute Auto 0.8 10^3/uL (0.3-0.8); Monocytes Percent Auto 10.2 % (1.7-12.0); Neutrophils Absolute Auto 4.9 10^3/uL (1.4-6.5); Neutrophils Percent Auto 62.9 % (43.0-75.0); Platelet Count 299 10^3/uL (150-450); Red Blood Count 5.23 10^6/uL (4.70-6.10); Red Cell Distribution Width 13.5 % (11.0-15.0); White Blood Count 7.8 10^3/uL (4.0-11.0)
[2024-02-18 08:16] LABS: Alanine Aminotransferase 33 U/L (16-63); Albumin Level 3.4 g/dL (3.4-5.0); Alkaline Phosphatase 86 U/L (46-116); Anion Gap 14.5; Aspartate Amino Transferase 23 U/L (15-37); BUN Creatinine Ratio 6.1; Bilirubin Total 0.6 mg/dL (0.2-1.0); Calcium 8.5 mg/dL (8.5-10.1); Chloride 105 mmol/L (98-107); Chol HDL Ratio 3.3; Cholesterol 164 mg/dL (<=200); Estimated GFR (African America >60 (>=60 mL/min/1.73m^2); Estimated GFR (Non-African Ame >60 (>=60 mL/min/1.73m^2); Globulin 3.4 g/dL; Glucose 103 mg/dL (74-106); HDL Cholesterol 49 mg/dL (40-60); LDL Cholesterol Calculated 97.6 mg/dL; Potassium 3.5 mmol/L (3.5-5.1); Sodium 143 mmol/L (136-145); Total Protein 6.8 g/dL (6.4-8.2); Triglycerides 87 mg/dL (<=150); VLDL CHOLESTEROL 17.4 mg/dL
[2024-02-18 11:09] LABS: Prostate Specific Antigen Scrn 0.93 ng/mL (<=4.00)
== END 2024-02-18 07:27 | disposition home or self-care (01) ==
LOC: LAB 07:26
PROVIDERS: Visit Provider Family Medicine
DX: I10 Essential (primary) hypertension (principal); Z12.5 Encounter for screening for malignant neoplasm of prostate
CPT/HCPCS: 36415; 80053; 80061; 85025; G0103